=== PATIENT | female | born 1960 | race Asian ===

== ENCOUNTER 2023-07-22 01:25 | Inpatient (IN) | payer MEDICARE, OTHER ==
[~2023-07-22] VITALS: Ht 152.4 cm; Wt 60.8 kg
[~2023-07-22 01:25] MED LIST: AMLO-258 PO; CLON0.3T PO; DIVA500T53 PO; OLAN10TA26 PO
[2023-07-22 01:55] VITALS: PULSE 109; RESP 27; O2SAT 100
[2023-07-22 02:00] VITALS: PULSE 109; RESP 27; O2SAT 100
[2023-07-22] MEDS ORDERED: MethylPREDNISolone SOD SUCC 125 MG/2 ML VIAL IVP ONE (02:00)
[2023-07-22] MEDS ORDERED: FUROSEMIDE 40 MG/4 ML VIAL IVP ONE (02:00)
[2023-07-22] MEDS ORDERED: ALBUTEROL SULFATE 2.5 MG/0.5 ML NEB SOLUTION NEB ONE (02:00)
[2023-07-22] MEDS ORDERED: IPRATROPIUM BROMIDE 0.5 MG/2.5 ML NEB SOLUTION NEB ONE (02:00)
[2023-07-22 02:10] LABS: BASOPHILS % (AUTO) 0.8 % (0.0-2.0); EOSINOPHILS % (AUTO) 2.8 % (1.0-6.0); HEMATOCRIT 23.8 % (36-46); HEMOGLOBIN 7.7 g/dL (12.0-16.0); LYMPHOCYTES # (AUTO) 1.3 K/uL (1.0-4.8); LYMPHOCYTES % (AUTO) 12.6 % (22.0-44.0); MEAN CORPUSCULAR HEMOGLOBIN 29.3 pg (26.0-34.0); MEAN CORPUSCULAR HGB CONC 32.2 G/dL (31.0-37.0); MEAN CORPUSCULAR VOLUME 91 fL (80-100); MONOCYTES # (AUTO) 0.6 K/uL (0.1-1.0); MONOCYTES % (AUTO) 6.2 % (2.0-9.0); NEUTROPHILS % (AUTO) 77.6 % (40.0-70.0); PLATELET COUNT (AUTO) 332 K/uL (150-450); RED BLOOD CELL COUNT(AUTO) 2.62 MIL/uL (4.00-5.20); RED CELL DISTRIBUTION WIDTH 15.2 % (11.5-14.5); WHITE BLOOD COUNT (AUTO) 10.3 K/uL (4.5-11.0)
[2023-07-22] MEDS ORDERED: NITROGLYCERIN 2% (1 GM=INCH) OINTMENT PACKET TP ONE (02:15)
[2023-07-22 02:19] LABS: CALCIUM, TOTAL 7.5 mg/dL (8.8-10.5); CREATININE 6.26 mg/dL (0.60-1.30); POTASSIUM 4.3 mmol/L (3.5-5.1)
[2023-07-22 02:23] LABS: D-DIMER 1.51 mg/L FEU (0.00-0.50); INR 1.1 (0.9-1.1); PROTHROMBIN TIME 11.5 SEC (9.4-11.6)
[2023-07-22 02:29] LABS: ALBUMIN 1.6 g/dL (3.4-5.0); BILIRUBIN,TOTAL 0.1 mg/dL (0.1-1.0); TOTAL PROTEIN, SERUM 7.2 g/dL (6.4-8.2)
[2023-07-22 02:34] LABS: TROPONIN I-HIGH SENSITIVITY 69 ng/L (<51)
[2023-07-22] MEDS ORDERED: HydrALAZINE HCL 20 MG/ML VIAL IVP ONE (02:45)
[2023-07-22 02:56] LABS: COVID AG,FIA SOURCE NASAL SWAB
[2023-07-22] MEDS ORDERED: DEXTROSE 50%-WATER 25 GM/50 ML SYRINGE IVP PRN (03:00)
[2023-07-22] MEDS ORDERED: NiCARDipine HCL 25 MG in SODIUM CHLORIDE 0.9% 240 ML IV PRN (03:00)
[2023-07-22] MEDS ORDERED: ATORVASTATIN CALCIUM 40 MG TABLET PO ONE (03:00)
[2023-07-22] MEDS ORDERED: LABETALOL HCL 5 MG/ML 20 ML VIAL IVP ONE (03:15)
[2023-07-22 03:16] LABS: SARS-COV2 (COVID) ANTIGEN,FIA Negative (Negative)
[2023-07-22 03:17] LABS: INFLUENZA TYPE A NEGATIVE FOR TYPE A (NEGATIVE); INFLUENZA TYPE B NEGATIVE FOR TYPE B (NEGATIVE)
[2023-07-22 04:29] LABS: % IRON SATURATION 9.6 % (22-44)
[2023-07-22 04:55] LABS: APPEARANCE,URINE CLEAR (CLEAR); BILIRUBIN,URINE NEGATIVE (NEGATIVE); COLOR,URINE COLORLESS (YELLOW); CREATININE,URINE RANDOM 34.9 mg/dL (30.0-125.0); GLUCOSE, URINE (UA) 300-500 mg/dL (NEGATIVE); KETONES,URINE NEGATIVE (NEGATIVE); LEUKOCYTE ESTERASE ,URINE TRACE (NEGATIVE); NITRATE,URINE NEGATIVE (NEGATIVE); OCCULT BLOOD,URINE SMALL (NEGATIVE); PROTEIN,URINE 300-600,SEE CONFIRM mg/dL (NEGATIVE); SPECIFIC GRAVITIY, URINE 1.012 (1.003-1.030); UROBILINOGEN,URINE <=1.0 mg/dL (<=1.0)
[2023-07-22 05:05] LABS: BACTERIA,URINE None Seen /HPF (None Seen); SQUAMOUS EPITHELIAL CELL,UR None Seen /LPF (None Seen)
[2023-07-22 05:06] LABS: SULFOSALICYLIC ACID,URINE 3+ (Negative)
[2023-07-22 06:35] VITALS: PULSE 81; RESP 15; O2SAT 98
[2023-07-22 07:11] LABS: TROPONIN I-HIGH SENSITIVITY 99 ng/L (<51)
[2023-07-22 09:44] LABS: TROPONIN I-HIGH SENSITIVITY 105 ng/L (<51)
[2023-07-22 11:04] LABS: ABG BASE EXCESS -10.6 mmol/L (-2.0-3.0); ABG CARBOXYHEMOGLOBIN 0.5 % (0.0-1.5); ABG HCO3 16.7 mmol/L (22.0-26.0); ABG METHEMOGLOBIN 0.3 % (0.0-1.5); ABG OXYGEN CONTENT 12.1 mL/dL (15.0-23.0); ABG OXYGEN SATURATION 97.8 % (95.0-98.0); ABG PCO2 28 mmHg (35-45); ABG PH 7.354 (7.35-7.450); ABG TOTAL HEMOGLOBIN 8.7 G/dL (12.0-18.0); SOURCE, BLOOD GAS ARTERIAL; TEMPERATURE, FAHRENHEIT, BG 95.3 FAHREN (96.0-98.6)
[2023-07-22 11:05] LABS: ABG A-A DIFF O2 98.3 mmHg (10-20.0); ALLEN TEST, BLOOD GAS Positive; O2 DEVICE,BLOOD GAS CANNULA (ROOM AIR); SITE, BLOOD GAS RT RADIAL
[2023-07-22] MEDS ORDERED: PENTETATE DTPA TC99M/MCL ISOTOPE 1 EA INJ INJ ONE (11:50)
[2023-07-22] MEDS ORDERED: MAA ALBUMIN AGGREGATED TC99M/UD<10MCL ISOTOPE 1 EA INJ INJ ONE (12:20)
[2023-07-22 13:00] VITALS: BP 168/91; PULSE 92; RESP 20; TEMP 94.8
[2023-07-22] MEDS ORDERED: DOCU-412 PO (14:52)
[2023-07-22] MEDS ORDERED: FURO20TA4 PO (14:52)
[2023-07-22] MEDS ORDERED: METF-1211 PO (14:52)
[2023-07-22] MEDS ORDERED: AMLO10TA55 PO (14:52)
[2023-07-22] MEDS ORDERED: DIVA-111 PO (14:52)
[2023-07-22] MEDS: HydrALAZINE HCL 20 MG/ML VIAL IVP PRN (14:56)
[2023-07-22 16:00] VITALS: BP 126/66; PULSE 97; RESP 29; TEMP 95.4
[2023-07-22] MEDS: HEPARIN SODIUM,PORCINE 5,000 UNITS/ML VIAL SQ SCH (16:22)
[2023-07-22] MEDS: BUMETANIDE 0.25 MG/ML 4 ML VIAL IVP SCH ×2 (16:22→20:28)
[2023-07-22 16:51] LABS: GLUCOMETER DEV NAME(LOC) ICUN.5; GLUCOSE,POINT OF CARE 134 MG/DL (70-110)
[2023-07-22 17:30] LABS: ALCOHOL, URINE DRUG SCREEN NEGATIVE (NEGATIVE); AMPHET/METH SCREEN,URINE NEGATIVE (NEGATIVE); BARBITURATE SCREEN, URINE NEGATIVE (NEGATIVE); BENZODIAZEPINES SCREEN,URINE NEGATIVE (NEGATIVE); CANNABINOID SCREEN,URINE NEGATIVE (NEGATIVE); COCAINE SCREEN,URINE NEGATIVE (NEGATIVE); METHADONE SCREEN, URINE NEGATIVE (NEGATIVE); OPIATE SCREEN,URINE NEGATIVE (NEGATIVE); PHENCYCLIDINE SCREEN,URINE NEGATIVE (NEGATIVE)
[2023-07-22] MEDS: INSULIN LISPRO 100 UNITS/ML SQ PRN (18:15)
[2023-07-22] MEDS ORDERED: METOLAZONE 5 MG TABLET PO ONE (19:00)
[2023-07-22 19:16] LABS: GLUCOMETER DEV NAME(LOC) ICUN.5; GLUCOSE,POINT OF CARE 164 MG/DL (70-110)
[2023-07-22 20:00] VITALS: BP 160/83; PULSE 103; RESP 23; TEMP 96.1
[2023-07-22] MEDS: ATORVASTATIN CALCIUM 40 MG TABLET PO SCH (20:29)
[2023-07-22] MEDS: DOCUSATE SODIUM 100 MG CAPSULE PO SCH (20:29)
[2023-07-22] MEDS ORDERED: PNEUMOCOCCAL VACCINE POLYVALENT 0.5 ML SYRINGE [PPSV23] IM. ONE (20:45)
[2023-07-22] MEDS ORDERED: INFLUENZA VIRUS VACCINE QVS 2023-24 (6MO+)/PF 60 MCG/0.5 ML SYRINGE IM. ONE (20:45)
[2023-07-22] MEDS: METOPROLOL TARTRATE 25 MG TABLET PO SCH (21:19)
[2023-07-22] MEDS: CHLORHEXIDINE GLUCONATE 2% TOWELETTE [2'S/6'S] TP SCH (22:09)
[2023-07-23] VITALS (18 sets, daily range): BP systolic 124–164; BP diastolic 53–108; PULSE 73–95; RESP 11–23; TEMP 97.6–98.6
[2023-07-23] MEDS: HEPARIN SODIUM,PORCINE 5,000 UNITS/ML VIAL SQ SCH ×4 (00:06→23:52)
[2023-07-23 05:34] LABS: BASOPHILS % (AUTO) 0.2 % (0.0-2.0); EOSINOPHILS % (AUTO) 0 % (1.0-6.0); LYMPHOCYTES # (AUTO) 1.2 K/uL (1.0-4.8); MONOCYTES # (AUTO) 0.8 K/uL (0.1-1.0)
[2023-07-23 05:41] LABS: CALCIUM, TOTAL 6.9 mg/dL (8.8-10.5); CREATININE 6.46 mg/dL (0.60-1.30); MAGNESIUM 2.3 mg/dL (1.80-2.40); POTASSIUM 4.7 mmol/L (3.5-5.1)
[2023-07-23 05:43] LABS: LYMPHOCYTES % (AUTO) 10.1 % (22.0-44.0); MEAN CORPUSCULAR HEMOGLOBIN 29.5 pg (26.0-34.0); MEAN CORPUSCULAR HGB CONC 32.6 G/dL (31.0-37.0); MEAN CORPUSCULAR VOLUME 91 fL (80-100); MONOCYTES % (AUTO) 7.1 % (2.0-9.0); NEUTROPHILS # (AUTO) 9.5 K/uL (1.8-7.7); NEUTROPHILS % (AUTO) 82.6 % (40.0-70.0); PLATELET COUNT (AUTO) 312 K/uL (150-450); RED BLOOD CELL COUNT(AUTO) 2.32 MIL/uL (4.00-5.20); RED CELL DISTRIBUTION WIDTH 15.3 % (11.5-14.5); WHITE BLOOD COUNT (AUTO) 11.5 K/uL (4.5-11.0)
[2023-07-23 05:57] LABS: HEMOGLOBIN 6.8 g/dL (12.0-16.0); TROPONIN I-HIGH SENSITIVITY 72 ng/L (<51)
[2023-07-23 07:11] LABS: GLUCOMETER DEV NAME(LOC) ICUN.5; GLUCOSE,POINT OF CARE 114 MG/DL (70-110)
[2023-07-23] MEDS: METOPROLOL TARTRATE 25 MG TABLET PO SCH ×2 (08:58→20:18)
[2023-07-23] MEDS: BUMETANIDE 0.25 MG/ML 4 ML VIAL IVP SCH ×3 (08:58→20:18)
[2023-07-23] MEDS: DOCUSATE SODIUM 100 MG CAPSULE PO SCH ×3 (08:58→21:00)
[2023-07-23] MEDS: AmLODIPine BESYLATE 5 MG TABLET PO SCH ×2 (08:59→20:18)
[2023-07-23] MEDS ORDERED: AmLODIPine BESYLATE 5 MG TABLET PO SCH (09:00)
[2023-07-23] MEDS ORDERED: HEPARIN SODIUM,PORCINE 1,000 UNITS/ML VIAL IVCATH ONE ×2 (10:45)
[2023-07-23] MEDS ORDERED: SODIUM CHLORIDE 0.9% 250 ML IV ONE (10:57)
[2023-07-23] MEDS ORDERED: HEPARIN SODIUM,PORCINE 1,000 UNITS/ML VIAL IVCATH PRN (11:00)
[2023-07-23 15:56] LABS: GLUCOSE,POINT OF CARE 110 MG/DL (70-110)
[2023-07-23] MEDS: ATORVASTATIN CALCIUM 40 MG TABLET PO SCH (20:18)
[2023-07-23] MEDS: INSULIN LISPRO 100 UNITS/ML SQ PRN (20:21)
[2023-07-23 20:25] LABS: GLUCOMETER DEV NAME(LOC) ICUN.5; GLUCOSE,POINT OF CARE 152 MG/DL (70-110)
[2023-07-23 21:16] LABS: GLUCOSE,POINT OF CARE 105 MG/DL (70-110)
[2023-07-23] MEDS: CHLORHEXIDINE GLUCONATE 2% TOWELETTE [2'S/6'S] TP SCH (21:19)
[2023-07-23] MEDS: HydrALAZINE HCL 20 MG/ML VIAL IVP PRN (23:47)
[2023-07-24] VITALS (13 sets, daily range): BP systolic 119–162; BP diastolic 58–83; PULSE 73–80; RESP 15–18; TEMP 98.6–99
[2023-07-24 06:22] LABS: GLUCOMETER DEV NAME(LOC) ICUN.5; GLUCOSE,POINT OF CARE 96 MG/DL (70-110)
[2023-07-24 06:29] LABS: BASOPHILS % (AUTO) 0.2 % (0.0-2.0); EOSINOPHILS % (AUTO) 2.3 % (1.0-6.0); HEMATOCRIT 27.3 % (36-46); HEMOGLOBIN 9.1 g/dL (12.0-16.0); LYMPHOCYTES # (AUTO) 1.8 K/uL (1.0-4.8); MEAN CORPUSCULAR HEMOGLOBIN 29.9 pg (26.0-34.0); MEAN CORPUSCULAR HGB CONC 33.3 G/dL (31.0-37.0); MEAN CORPUSCULAR VOLUME 90 fL (80-100); MONOCYTES # (AUTO) 0.9 K/uL (0.1-1.0); MONOCYTES % (AUTO) 8.4 % (2.0-9.0); NEUTROPHILS # (AUTO) 8.1 K/uL (1.8-7.7); NEUTROPHILS % (AUTO) 73.1 % (40.0-70.0); PLATELET COUNT (AUTO) 254 K/uL (150-450); RED BLOOD CELL COUNT(AUTO) 3.03 MIL/uL (4.00-5.20); RED CELL DISTRIBUTION WIDTH 14.7 % (11.5-14.5)
[2023-07-24 06:41] LABS: CALCIUM, TOTAL 7.3 mg/dL (8.8-10.5); CHOL/HDL RATIO 2.5 (3.9-5.7); CREATININE 4.7 mg/dL (0.60-1.30); MAGNESIUM 1.9 mg/dL (1.80-2.40)
[2023-07-24] MEDS ORDERED: SODIUM CHLORIDE 0.9% 2,000 ML ONE (06:56)
[2023-07-24 07:01] LABS: % IRON SATURATION 13.9 % (22-44)
[2023-07-24] MEDS ORDERED: LACTULOSE 20 GM/30 ML SOLUTION UDCUP PO ONE (08:30)
[2023-07-24] MEDS: HEPARIN SODIUM,PORCINE 5,000 UNITS/ML VIAL SQ SCH ×3 (08:37→23:18)
[2023-07-24] MEDS: DOCUSATE SODIUM 100 MG CAPSULE PO SCH ×2 (08:38→20:50)
[2023-07-24] MEDS: BUMETANIDE 0.25 MG/ML 4 ML VIAL IVP SCH ×3 (08:38→20:49)
[2023-07-24] MEDS: METOPROLOL TARTRATE 25 MG TABLET PO SCH ×2 (08:38→20:50)
[2023-07-24] MEDS: AmLODIPine BESYLATE 5 MG TABLET PO SCH ×2 (08:38→20:50)
[2023-07-24 09:07] LABS: COMPLEMENT C3 126 mg/dL (82-167); COMPLEMENT C4 39 mg/dL (12-38)
[2023-07-24] MEDS: MethylPREDNISolone SOD SUCC 40 MG/ML VIAL IVP SCH ×4 (09:42→23:17)
[2023-07-24] MEDS: EPOETIN ALFA 10,000 UNITS/ML VIAL SQ SCH (09:42)
[2023-07-24 11:16] LABS: HEMOGLOBIN A1C 5.6 % (3.8-5.6)
[2023-07-24 12:16] LABS: GLUCOMETER DEV NAME(LOC) ICUN.5; GLUCOSE,POINT OF CARE 111 MG/DL (70-110)
[2023-07-24] MEDS: SOD FERRIC GLUC COMPLX/SUCROSE 125 MG in SODIUM CHLORIDE 0.9% 100 ML IV SCH (15:34)
[2023-07-24] MEDS ORDERED: SODIUM CHLORIDE 0.9% 250 ML IV ONE (15:41)
[2023-07-24] MEDS ORDERED: HEPARIN SODIUM,PORCINE 1,000 UNITS/ML VIAL IVP ONE ×2 (17:20→17:23)
[2023-07-24] MEDS: INSULIN LISPRO 100 UNITS/ML SQ PRN ×2 (17:29→22:15)
[2023-07-24] MEDS: HydrALAZINE HCL 20 MG/ML VIAL IVP PRN (17:40)
[2023-07-24 19:31] LABS: GLUCOMETER DEV NAME(LOC) ICUN.5; GLUCOSE,POINT OF CARE 215 MG/DL (70-110)
[2023-07-24] MEDS: ATORVASTATIN CALCIUM 40 MG TABLET PO SCH (20:50)
[2023-07-24 22:31] LABS: GLUCOMETER DEV NAME(LOC) ICUN.5; GLUCOSE,POINT OF CARE 236 MG/DL (70-110)
[2023-07-24] MEDS: CHLORHEXIDINE GLUCONATE 2% TOWELETTE [2'S/6'S] TP SCH (23:18)
[2023-07-25] VITALS: BP 153/76; PULSE 75; RESP 14; TEMP 99.5
[2023-07-25 04:00] VITALS: BP 150/73; PULSE 71; PULSE 73; RESP 15; TEMP 99.4
[2023-07-25] MEDS: MethylPREDNISolone SOD SUCC 40 MG/ML VIAL IVP SCH ×4 (05:01→23:53)
[2023-07-25] MEDS: INSULIN LISPRO 100 UNITS/ML SQ PRN ×3 (05:53→22:27)
[2023-07-25 05:56] LABS: GLUCOMETER DEV NAME(LOC) ICUN.5; GLUCOSE,POINT OF CARE 170 MG/DL (70-110)
[2023-07-25 06:10] LABS: BASOPHILS % (AUTO) 0.1 % (0.0-2.0); EOSINOPHILS % (AUTO) 0 % (1.0-6.0); HEMATOCRIT 28.2 % (36-46); HEMOGLOBIN 9.3 g/dL (12.0-16.0); LYMPHOCYTES # (AUTO) 0.6 K/uL (1.0-4.8); LYMPHOCYTES % (AUTO) 6.3 % (22.0-44.0); MEAN CORPUSCULAR HEMOGLOBIN 29.6 pg (26.0-34.0); MEAN CORPUSCULAR VOLUME 90 fL (80-100); MONOCYTES # (AUTO) 0.2 K/uL (0.1-1.0); MONOCYTES % (AUTO) 1.9 % (2.0-9.0); NEUTROPHILS # (AUTO) 8.6 K/uL (1.8-7.7); PLATELET COUNT (AUTO) 228 K/uL (150-450); RED BLOOD CELL COUNT(AUTO) 3.14 MIL/uL (4.00-5.20); RED CELL DISTRIBUTION WIDTH 14.9 % (11.5-14.5); WHITE BLOOD COUNT (AUTO) 9.4 K/uL (4.5-11.0)
[2023-07-25 06:25] LABS: CALCIUM, TOTAL 6.9 mg/dL (8.8-10.5); CREATININE 4.12 mg/dL (0.60-1.30); MAGNESIUM 1.9 mg/dL (1.80-2.40); PHOSPHORUS 5.1 mg/dL (2.5-4.9); POTASSIUM 3.6 mmol/L (3.5-5.1)
[2023-07-25 07:08] LABS: NEUTROPHILS % (AUTO) 91.7 % (40.0-70.0)
[2023-07-25] MEDS: HEPARIN SODIUM,PORCINE 5,000 UNITS/ML VIAL SQ SCH ×3 (07:32→23:53)
[2023-07-25] MEDS: BUMETANIDE 0.25 MG/ML 4 ML VIAL IVP SCH ×3 (07:36→21:27)
[2023-07-25] MEDS: METOPROLOL TARTRATE 25 MG TABLET PO SCH ×2 (07:37→21:28)
[2023-07-25] MEDS: DOCUSATE SODIUM 100 MG CAPSULE PO SCH ×2 (07:37→21:27)
[2023-07-25] MEDS: AmLODIPine BESYLATE 5 MG TABLET PO SCH ×2 (07:37→21:27)
[2023-07-25 08:00] VITALS: BP 145/71; PULSE 70; RESP 12; TEMP 99
[2023-07-25 11:46] LABS: GLUCOSE,POINT OF CARE 226 MG/DL (70-110)
[2023-07-25 12:00] VITALS: BP 160/67; PULSE 71; RESP 14; TEMP 98.7
[2023-07-25 16:00] VITALS: BP 154/78; PULSE 75; RESP 14; TEMP 98.5
[2023-07-25] MEDS: SOD FERRIC GLUC COMPLX/SUCROSE 125 MG in SODIUM CHLORIDE 0.9% 100 ML IV SCH (16:50)
[2023-07-25 17:57] LABS: SPECIMENTYPE,BODY FLUID PLEURAL
[2023-07-25 18:33] LABS: APPEARANCE,SPUN,BODY FLUID CLEAR (CLEAR); APPEARANCE,UNSPUN,BODY FLUID HAZY (CLEAR); COLOR,BODY FLUID LT YELLOW (LT YELLOW); TOTAL VOLUME,BODY FLUID 550 mL
[2023-07-25 18:34] LABS: BASOPHILS,BODY FLUID 0 %; EOSINOPHILS,BF (ANAL) 0 %; LYMPHOCYTES,BODY FLUID 40 %; MONOCYTES,BODY FLUID 4 %; NEUTROPHILS,BODY FLUID 4 %; OTHER CELLS,BODY FLUID MESOTHELIALS; WBC, BODY FLUID 38 /cu. mm.
[2023-07-25 18:35] LABS: PH, BODY FLUID 7
[2023-07-25 19:51] LABS: GLUCOMETER DEV NAME(LOC) ICUN.5; GLUCOSE,POINT OF CARE 259 MG/DL (70-110)
[2023-07-25 20:00] VITALS: BP 169/92; PULSE 72; RESP 16; TEMP 98.7
[2023-07-25] MEDS: ATORVASTATIN CALCIUM 40 MG TABLET PO SCH (21:27)
[2023-07-25] MEDS: CHLORHEXIDINE GLUCONATE 2% TOWELETTE [2'S/6'S] TP SCH (22:27)
[2023-07-25 22:35] LABS: GLUCOMETER DEV NAME(LOC) ICUN.5; GLUCOSE,POINT OF CARE 235 MG/DL (70-110)
[2023-07-26] VITALS (16 sets, daily range): BP systolic 142–170; BP diastolic 72–86; PULSE 61–73; RESP 13–17; TEMP 98.4–99.5
[2023-07-26] MEDS ORDERED: SODIUM CHLORIDE 0.9% 2,000 ML ONE (04:02)
[2023-07-26] MEDS: MethylPREDNISolone SOD SUCC 40 MG/ML VIAL IVP SCH ×3 (05:36→17:19)
[2023-07-26 06:00] LABS: EOSINOPHILS % (AUTO) 0 % (1.0-6.0); HEMATOCRIT 29.7 % (36-46); HEMOGLOBIN 9.7 g/dL (12.0-16.0); LYMPHOCYTES # (AUTO) 0.7 K/uL (1.0-4.8); LYMPHOCYTES % (AUTO) 3.2 % (22.0-44.0); MEAN CORPUSCULAR HEMOGLOBIN 29.4 pg (26.0-34.0); MEAN CORPUSCULAR HGB CONC 32.6 G/dL (31.0-37.0); MEAN CORPUSCULAR VOLUME 90 fL (80-100); MONOCYTES # (AUTO) 1.2 K/uL (0.1-1.0); MONOCYTES % (AUTO) 5.5 % (2.0-9.0); PLATELET COUNT (AUTO) 258 K/uL (150-450); RED BLOOD CELL COUNT(AUTO) 3.29 MIL/uL (4.00-5.20); RED CELL DISTRIBUTION WIDTH 14.3 % (11.5-14.5); WHITE BLOOD COUNT (AUTO) 21.9 K/uL (4.5-11.0)
[2023-07-26 06:14] LABS: CALCIUM, TOTAL 7.6 mg/dL (8.8-10.5); CREATININE 2.79 mg/dL (0.60-1.30); POTASSIUM 3.3 mmol/L (3.5-5.1)
[2023-07-26 06:36] LABS: GLUCOMETER DEV NAME(LOC) ICUN.5; GLUCOSE,POINT OF CARE 116 MG/DL (70-110)
[2023-07-26 06:44] LABS: NEUTROPHILS % (AUTO) 91.3 % (40.0-70.0)
[2023-07-26] MEDS ORDERED: HEPARIN SODIUM,PORCINE 1,000 UNITS/ML VIAL IVCATH ONE ×2 (08:00)
[2023-07-26] MEDS: EPOETIN ALFA 10,000 UNITS/ML VIAL SQ SCH (08:49)
[2023-07-26] MEDS: BUMETANIDE 0.25 MG/ML 4 ML VIAL IVP SCH ×3 (08:50→20:05)
[2023-07-26] MEDS: DOCUSATE SODIUM 100 MG CAPSULE PO SCH ×2 (08:50→20:05)
[2023-07-26] MEDS: AmLODIPine BESYLATE 5 MG TABLET PO SCH ×2 (08:50→20:05)
[2023-07-26] MEDS: METOPROLOL TARTRATE 25 MG TABLET PO SCH ×2 (08:50→20:05)
[2023-07-26] MEDS: HEPARIN SODIUM,PORCINE 5,000 UNITS/ML VIAL SQ SCH ×2 (08:50→15:47)
[2023-07-26] MEDS: INSULIN LISPRO 100 UNITS/ML SQ PRN ×3 (11:30→20:08)
[2023-07-26] MEDS: SOD FERRIC GLUC COMPLX/SUCROSE 125 MG in SODIUM CHLORIDE 0.9% 100 ML IV SCH (15:46)
[2023-07-26] MEDS: HydrALAZINE HCL 50 MG TABLET PO SCH (15:47)
[2023-07-26 16:36] LABS: GLUCOMETER DEV NAME(LOC) ICUN.5; GLUCOSE,POINT OF CARE 232 MG/DL (70-110)
[2023-07-26 19:36] LABS: GLUCOMETER DEV NAME(LOC) ICUN.5; GLUCOSE,POINT OF CARE 189 MG/DL (70-110)
[2023-07-26] MEDS: ATORVASTATIN CALCIUM 40 MG TABLET PO SCH (20:05)
[2023-07-26 20:15] LABS: GLUCOMETER DEV NAME(LOC) ICUN.5; GLUCOSE,POINT OF CARE 241 MG/DL (70-110)
[2023-07-26] MEDS: CHLORHEXIDINE GLUCONATE 2% TOWELETTE [2'S/6'S] TP SCH (20:40)
[2023-07-27] VITALS: BP 159/77; PULSE 66; RESP 15; TEMP 99.5
[2023-07-27] MEDS: HydrALAZINE HCL 50 MG TABLET PO SCH ×4 (00:31→23:09)
[2023-07-27] MEDS: HEPARIN SODIUM,PORCINE 5,000 UNITS/ML VIAL SQ SCH ×4 (00:31→23:10)
[2023-07-27] MEDS: MethylPREDNISolone SOD SUCC 40 MG/ML VIAL IVP SCH ×2 (00:32→06:00)
[2023-07-27 04:00] VITALS: BP 151/70; PULSE 65; RESP 16; TEMP 98.5
[2023-07-27 05:15] LABS: EOSINOPHILS % (AUTO) 0 % (1.0-6.0); HEMATOCRIT 30.2 % (36-46); HEMOGLOBIN 10.2 g/dL (12.0-16.0); LYMPHOCYTES # (AUTO) 0.8 K/uL (1.0-4.8); LYMPHOCYTES % (AUTO) 2.7 % (22.0-44.0); MEAN CORPUSCULAR HEMOGLOBIN 29.8 pg (26.0-34.0); MEAN CORPUSCULAR HGB CONC 33.6 G/dL (31.0-37.0); MEAN CORPUSCULAR VOLUME 89 fL (80-100); MONOCYTES # (AUTO) 1.3 K/uL (0.1-1.0); MONOCYTES % (AUTO) 4.3 % (2.0-9.0); NEUTROPHILS # (AUTO) 27.6 K/uL (1.8-7.7); PLATELET COUNT (AUTO) 267 K/uL (150-450); RED BLOOD CELL COUNT(AUTO) 3.41 MIL/uL (4.00-5.20); RED CELL DISTRIBUTION WIDTH 14.4 % (11.5-14.5); WHITE BLOOD COUNT (AUTO) 29.7 K/uL (4.5-11.0)
[2023-07-27 05:29] LABS: CALCIUM, TOTAL 7.7 mg/dL (8.8-10.5); CREATININE 3.45 mg/dL (0.60-1.30); PHOSPHORUS 4.7 mg/dL (2.5-4.9); POTASSIUM 3.8 mmol/L (3.5-5.1)
[2023-07-27] MEDS: INSULIN LISPRO 100 UNITS/ML SQ PRN ×3 (06:02→17:43)
[2023-07-27 07:10] LABS: GLUCOMETER DEV NAME(LOC) ICUN.5; GLUCOSE,POINT OF CARE 162 MG/DL (70-110)
[2023-07-27 08:00] VITALS: BP 156/87; PULSE 66; RESP 15; TEMP 98.5
[2023-07-27] MEDS: BUMETANIDE 0.25 MG/ML 4 ML VIAL IVP SCH ×3 (08:17→20:52)
[2023-07-27] MEDS: METOPROLOL TARTRATE 25 MG TABLET PO SCH ×2 (08:20→20:53)
[2023-07-27] MEDS: DOCUSATE SODIUM 100 MG CAPSULE PO SCH ×2 (08:20→20:53)
[2023-07-27] MEDS: AmLODIPine BESYLATE 5 MG TABLET PO SCH ×2 (08:20→20:53)
[2023-07-27 12:00] VITALS: BP 151/80; PULSE 66; RESP 15; TEMP 98.3
[2023-07-27] MEDS ORDERED: SODIUM CHLORIDE 0.9% 250 ML IV ONE (15:23)
[2023-07-27] MEDS: SOD FERRIC GLUC COMPLX/SUCROSE 125 MG in SODIUM CHLORIDE 0.9% 100 ML IV SCH (15:29)
[2023-07-27 16:00] VITALS: BP 149/84; PULSE 69; RESP 14; TEMP 99
[2023-07-27 17:01] LABS: GLUCOMETER DEV NAME(LOC) ICUN.5; GLUCOSE,POINT OF CARE 226 MG/DL (70-110)
[2023-07-27] MEDS: ACETAMINOPHEN 325 MG TABLET PO PRN (17:45)
[2023-07-27] MEDS: ONDANSETRON HCL 4 MG/2 ML VIAL IVP PRN (18:00)
[2023-07-27 20:00] VITALS: BP 104/60; PULSE 83; RESP 14; TEMP 99.8
[2023-07-27 20:11] LABS: GLUCOSE,POINT OF CARE 236 MG/DL (70-110)
[2023-07-27] MEDS: ATORVASTATIN CALCIUM 40 MG TABLET PO SCH (20:53)
[2023-07-27] MEDS: CHLORHEXIDINE GLUCONATE 2% TOWELETTE [2'S/6'S] TP SCH (22:08)
[2023-07-27] MEDS ORDERED: GABAPENTIN 300 MG CAPSULE PO ONE (23:00)
[2023-07-27 23:51] LABS: GLUCOSE,POINT OF CARE 124 MG/DL (70-110)
[2023-07-28] VITALS (10 sets, daily range): BP systolic 112–177; BP diastolic 60–92; PULSE 63–86; RESP 15–18; TEMP 98.1–98.5
[2023-07-28] MEDS: ONDANSETRON HCL 4 MG/2 ML VIAL IVP PRN ×2 (02:24→08:07)
[2023-07-28 05:59] LABS: HEMATOCRIT 30.6 % (36-46); HEMOGLOBIN 9.9 g/dL (12.0-16.0); MEAN CORPUSCULAR HEMOGLOBIN 29.5 pg (26.0-34.0); MEAN CORPUSCULAR HGB CONC 32.5 G/dL (31.0-37.0); MEAN CORPUSCULAR VOLUME 91 fL (80-100); PLATELET COUNT (AUTO) 246 K/uL (150-450); RED BLOOD CELL COUNT(AUTO) 3.37 MIL/uL (4.00-5.20); RED CELL DISTRIBUTION WIDTH 14.5 % (11.5-14.5)
[2023-07-28 06:08] LABS: CALCIUM, TOTAL 7.2 mg/dL (8.8-10.5); CREATININE 4.18 mg/dL (0.60-1.30); PHOSPHORUS 4.2 mg/dL (2.5-4.9); POTASSIUM 3.3 mmol/L (3.5-5.1)
[2023-07-28 06:31] LABS: WHITE BLOOD COUNT (AUTO) 36.4 K/uL (4.5-11.0)
[2023-07-28] MEDS: INSULIN LISPRO 100 UNITS/ML SQ PRN ×3 (06:38→21:16)
[2023-07-28 06:51] LABS: GLUCOSE,POINT OF CARE 178 MG/DL (70-110)
[2023-07-28 06:56] LABS: BAND NEUTROPHILS % (MANUAL) 1 % (0-5); LYMPHOCYTES % (MANUAL) 3 % (22-44); MONOCYTES % (MANUAL) 4 % (2-9); RBC MORPHOLOGY COMMENT ABNORMAL R; SEGMENTED NEUTROPHILS % 92 % (40-70); TOTAL CELLS COUNTED 100
[2023-07-28] MEDS: HEPARIN SODIUM,PORCINE 5,000 UNITS/ML VIAL SQ SCH ×2 (08:07→16:00)
[2023-07-28] MEDS: DOCUSATE SODIUM 100 MG CAPSULE PO SCH ×2 (08:07→20:55)
[2023-07-28] MEDS: BUMETANIDE 0.25 MG/ML 4 ML VIAL IVP SCH ×3 (08:07→20:55)
[2023-07-28] MEDS: HydrALAZINE HCL 50 MG TABLET PO SCH ×2 (08:08→16:36)
[2023-07-28] MEDS: METOPROLOL TARTRATE 25 MG TABLET PO SCH ×2 (08:08→20:55)
[2023-07-28] MEDS: ACETAMINOPHEN 325 MG TABLET PO PRN ×2 (08:08→17:51)
[2023-07-28] MEDS: AmLODIPine BESYLATE 5 MG TABLET PO SCH ×2 (08:08→20:55)
[2023-07-28] MEDS: HydrALAZINE HCL 20 MG/ML VIAL IVP PRN (08:20)
[2023-07-28] MEDS: POTASSIUM CHL 10 MEQ/WATER 50 ML IV SCH ×4 (11:05→16:34)
[2023-07-28 12:41] LABS: GLUCOMETER DEV NAME(LOC) ICUN.5; GLUCOSE,POINT OF CARE 148 MG/DL (70-110)
[2023-07-28 13:07] LABS: ATYPICAL P-ANCA AB <1:20 titer (Neg:<1:20); CYTOPLASMIC (C-ANCA) AB, IGG <1:20 titer (Neg:<1:20)
[2023-07-28] MEDS ORDERED: FentaNYL CITRATE PF 100 MCG/2 ML VIAL ONE (15:25)
[2023-07-28] MEDS ORDERED: MIDAZOLAM HCL 2 MG/2 ML VIAL ONE (15:25)
[2023-07-28] MEDS ORDERED: GELATIN SPONGE,ABSORBABLE 12-7 MM TP ONE (15:46)
[2023-07-28] MEDS ORDERED: LIDOCAINE/PF 1% 30 ML VIAL ONE (15:50)
[2023-07-28] MEDS ORDERED: MIDAZOLAM HCL 2 MG/2 ML VIAL IVP ONE (16:00)
[2023-07-28] MEDS ORDERED: LIDOCAINE 1% 30 ML/SOD BICARB 8.4% 4 ML SQ ONE (16:00)
[2023-07-28] MEDS ORDERED: FentaNYL CITRATE PF 100 MCG/2 ML VIAL IVP ONE (16:00)
[2023-07-28 19:46] LABS: GLUCOMETER DEV NAME(LOC) 5S.2C; GLUCOSE,POINT OF CARE 116 MG/DL (70-110)
[2023-07-28] MEDS: ATORVASTATIN CALCIUM 40 MG TABLET PO SCH (20:55)
[2023-07-28] MEDS: CHLORHEXIDINE GLUCONATE 2% TOWELETTE [2'S/6'S] TP SCH (20:56)
[2023-07-28 22:11] LABS: GLUCOMETER DEV NAME(LOC) 5S.1B; GLUCOSE,POINT OF CARE 235 MG/DL (70-110)
[2023-07-29] VITALS (14 sets, daily range): BP systolic 101–156; BP diastolic 54–100; PULSE 65–95; RESP 16–21; TEMP 97.5–98.5
[2023-07-29] MEDS: ONDANSETRON HCL 4 MG/2 ML VIAL IVP PRN ×2 (00:52→16:10)
[2023-07-29] MEDS: ACETAMINOPHEN 325 MG TABLET PO PRN ×2 (00:54→08:36)
[2023-07-29] MEDS: HydrALAZINE HCL 50 MG TABLET PO SCH ×3 (00:57→16:51)
[2023-07-29] MEDS: HEPARIN SODIUM,PORCINE 5,000 UNITS/ML VIAL SQ SCH ×3 (00:57→16:51)
[2023-07-29] MEDS: INSULIN LISPRO 100 UNITS/ML SQ PRN ×4 (06:14→20:26)
[2023-07-29 06:32] LABS: BASOPHILS % (AUTO) 0.3 % (0.0-2.0); EOSINOPHILS % (AUTO) 0 % (1.0-6.0); HEMATOCRIT 29.5 % (36-46); HEMOGLOBIN 9.7 g/dL (12.0-16.0); LYMPHOCYTES # (AUTO) 0.5 K/uL (1.0-4.8); LYMPHOCYTES % (AUTO) 1.3 % (22.0-44.0); MEAN CORPUSCULAR HEMOGLOBIN 29.9 pg (26.0-34.0); MEAN CORPUSCULAR HGB CONC 32.8 G/dL (31.0-37.0); MEAN CORPUSCULAR VOLUME 91 fL (80-100); MONOCYTES # (AUTO) 1.6 K/uL (0.1-1.0); MONOCYTES % (AUTO) 4.5 % (2.0-9.0); NEUTROPHILS # (AUTO) 32.8 K/uL (1.8-7.7); PLATELET COUNT (AUTO) 232 K/uL (150-450); RED BLOOD CELL COUNT(AUTO) 3.25 MIL/uL (4.00-5.20); RED CELL DISTRIBUTION WIDTH 14.2 % (11.5-14.5)
[2023-07-29 06:36] LABS: GLUCOMETER DEV NAME(LOC) 5S.1B; GLUCOSE,POINT OF CARE 176 MG/DL (70-110)
[2023-07-29 06:44] LABS: NEUTROPHILS % (AUTO) 93.9 % (40.0-70.0); WHITE BLOOD COUNT (AUTO) 34.9 K/uL (4.5-11.0)
[2023-07-29 07:08] LABS: CALCIUM, TOTAL 7.4 mg/dL (8.8-10.5); CREATININE 5.22 mg/dL (0.60-1.30); PHOSPHORUS 6.1 mg/dL (2.5-4.9); POTASSIUM 4.1 mmol/L (3.5-5.1)
[2023-07-29] MEDS: AmLODIPine BESYLATE 5 MG TABLET PO SCH ×2 (08:38→20:20)
[2023-07-29] MEDS: DOCUSATE SODIUM 100 MG CAPSULE PO SCH ×2 (08:38→20:20)
[2023-07-29] MEDS: BUMETANIDE 0.25 MG/ML 4 ML VIAL IVP SCH ×3 (08:38→20:20)
[2023-07-29] MEDS: METOPROLOL TARTRATE 25 MG TABLET PO SCH ×2 (08:38→20:20)
[2023-07-29] MEDS: EPOETIN ALFA 10,000 UNITS/ML VIAL SQ SCH (08:41)
[2023-07-29] MEDS ORDERED: MAGNESIUM SULFATE 1 GM in DEXTROSE 5%-WATER 50 ML IV ONE (11:30)
[2023-07-29] MEDS: SEVELAMER CARBONATE 800 MG TABLET PO SCH ×2 (12:00→17:14)
[2023-07-29] MEDS ORDERED: VANCOMYCIN 1GM/WATER(PEG/NADA) 200 ML IV PRN (12:15)
[2023-07-29 13:06] LABS: TOTAL PROTEIN,BODY FLUID,REF 1.2 g/dL
[2023-07-29] MEDS ORDERED: SODIUM CHLORIDE 0.9% 2,000 ML ONE (13:49)
[2023-07-29] MEDS ORDERED: VANCOMYCIN HCL 750 MG in DEXTROSE 5%-WATER 250 ML IV ONE (14:00)
[2023-07-29] MEDS: PIPERACILLIN SODIUM/TAZOBACTAM 2.25 GM in DEXTROSE 5%-WATER 50 ML IV SCH ×2 (16:51→20:20)
[2023-07-29] MEDS: HYDROCODONE/ACETAMINOPHEN 5-325 MG TABLET PO PRN (16:52)
[2023-07-29] MEDS: ATORVASTATIN CALCIUM 40 MG TABLET PO SCH (20:20)
[2023-07-29] MEDS: CHLORHEXIDINE GLUCONATE 2% TOWELETTE [2'S/6'S] TP SCH (22:17)
[2023-07-29 22:57] LABS: GLUCOMETER DEV NAME(LOC) 5S.1B; GLUCOSE,POINT OF CARE 238 MG/DL (70-110)
[2023-07-29 22:57] LABS: GLUCOMETER DEV NAME(LOC) 5S.2C; GLUCOSE,POINT OF CARE 240 MG/DL (70-110)
[2023-07-29 22:57] LABS: GLUCOMETER DEV NAME(LOC) 5S.1B; GLUCOSE,POINT OF CARE 284 MG/DL (70-110)
[2023-07-30 00:03] VITALS: BP 166/84; PULSE 81; RESP 18; TEMP 98.7
[2023-07-30] MEDS: HEPARIN SODIUM,PORCINE 5,000 UNITS/ML VIAL SQ SCH ×4 (00:22→23:47)
[2023-07-30] MEDS: HydrALAZINE HCL 50 MG TABLET PO SCH ×4 (00:22→23:46)
[2023-07-30] MEDS: PIPERACILLIN SODIUM/TAZOBACTAM 2.25 GM in DEXTROSE 5%-WATER 50 ML IV SCH ×3 (05:14→20:49)
[2023-07-30 05:22] VITALS: BP 133/72; PULSE 70; RESP 18; TEMP 98
[2023-07-30] MEDS: INSULIN LISPRO 100 UNITS/ML SQ PRN ×4 (05:34→20:55)
[2023-07-30 06:50] LABS: HEMATOCRIT 30.5 % (36-46); HEMOGLOBIN 9.9 g/dL (12.0-16.0); MEAN CORPUSCULAR HEMOGLOBIN 29.5 pg (26.0-34.0); MEAN CORPUSCULAR HGB CONC 32.4 G/dL (31.0-37.0); MEAN CORPUSCULAR VOLUME 91 fL (80-100); PLATELET COUNT (AUTO) 209 K/uL (150-450); RED BLOOD CELL COUNT(AUTO) 3.36 MIL/uL (4.00-5.20); RED CELL DISTRIBUTION WIDTH 14.2 % (11.5-14.5)
[2023-07-30 07:11] LABS: WHITE BLOOD COUNT (AUTO) 34.7 K/uL (4.5-11.0)
[2023-07-30 07:13] LABS: CALCIUM, TOTAL 7.4 mg/dL (8.8-10.5); CREATININE 4.34 mg/dL (0.60-1.30); PHOSPHORUS 5.8 mg/dL (2.5-4.9); POTASSIUM 3.9 mmol/L (3.5-5.1)
[2023-07-30 07:44] VITALS: BP 148/81; PULSE 74; RESP 16; TEMP 98.3
[2023-07-30 07:56] LABS: BAND NEUTROPHILS % (MANUAL) 5 % (0-5); LYMPHOCYTES % (MANUAL) 12 % (22-44); MONOCYTES % (MANUAL) 3 % (2-9); RBC MORPHOLOGY COMMENT NORMAL RBC MORPH; SEGMENTED NEUTROPHILS % 80 % (40-70); TOTAL CELLS COUNTED 100
[2023-07-30] MEDS ORDERED: VANCOMYCIN HCL 500 MG in DEXTROSE 5%-WATER 100 ML IV ONE (08:00)
[2023-07-30 08:39] LABS: APPEARANCE,URINE HAZY (CLEAR); BILIRUBIN,URINE NEGATIVE (NEGATIVE); COLOR,URINE LIGHT YELLOW (YELLOW); GLUCOSE, URINE (UA) 300-500 mg/dL (NEGATIVE); KETONES,URINE NEGATIVE (NEGATIVE); LEUKOCYTE ESTERASE ,URINE LARGE (NEGATIVE); NITRATE,URINE NEGATIVE (NEGATIVE); OCCULT BLOOD,URINE SMALL (NEGATIVE); PH,URINE 8.5 (5.0-8.0); PROTEIN,URINE >600,SEE CONFIRM mg/dL (NEGATIVE); SPECIFIC GRAVITIY, URINE 1.012 (1.003-1.030); UROBILINOGEN,URINE <=1.0 mg/dL (<=1.0)
[2023-07-30] MEDS: METOPROLOL TARTRATE 25 MG TABLET PO SCH ×2 (08:42→20:50)
[2023-07-30] MEDS: SEVELAMER CARBONATE 800 MG TABLET PO SCH ×3 (08:42→18:00)
[2023-07-30] MEDS: DOCUSATE SODIUM 100 MG CAPSULE PO SCH ×2 (08:42→20:50)
[2023-07-30] MEDS: HYDROCODONE/ACETAMINOPHEN 5-325 MG TABLET PO PRN ×3 (08:42→16:50)
[2023-07-30] MEDS: AmLODIPine BESYLATE 5 MG TABLET PO SCH ×2 (08:42→20:50)
[2023-07-30 08:43] LABS: SULFOSALICYLIC ACID,URINE 3+ (Negative)
[2023-07-30] MEDS: BUMETANIDE 0.25 MG/ML 4 ML VIAL IVP SCH ×3 (08:43→20:49)
[2023-07-30 08:44] LABS: BACTERIA,URINE Moderate /HPF (None Seen); SQUAMOUS EPITHELIAL CELL,UR Few /LPF (None Seen); TRIPLE PHOSPHATE CRYSTAL,UR Moderate /LPF (None Seen)
[2023-07-30 11:34] VITALS: BP 129/72; PULSE 86; RESP 16; TEMP 98.1
[2023-07-30] MEDS: ONDANSETRON HCL 4 MG/2 ML VIAL IVP PRN (12:34)
[2023-07-30 15:48] VITALS: BP 141/76; PULSE 74; RESP 16; TEMP 97.7
[2023-07-30] MEDS ORDERED: HEPARIN SODIUM,PORCINE 1,000 UNITS/ML VIAL IVP ONE (16:43)
[2023-07-30 19:39] VITALS: BP 118/60; PULSE 73; RESP 18; TEMP 98.3
[2023-07-30 20:26] LABS: GLUCOMETER DEV NAME(LOC) 5S.1B; GLUCOSE,POINT OF CARE 165 MG/DL (70-110)
[2023-07-30 20:26] LABS: GLUCOMETER DEV NAME(LOC) 5S.1B; GLUCOSE,POINT OF CARE 246 MG/DL (70-110)
[2023-07-30] MEDS: ATORVASTATIN CALCIUM 40 MG TABLET PO SCH (20:50)
[2023-07-30] MEDS: CHLORHEXIDINE GLUCONATE 2% TOWELETTE [2'S/6'S] TP SCH (23:08)
[2023-07-30 23:21] LABS: GLUCOMETER DEV NAME(LOC) 5N.2C; GLUCOSE,POINT OF CARE 195 MG/DL (70-110)
[2023-07-31 00:11] VITALS: BP 113/57; PULSE 66; RESP 18; TEMP 98.5
[2023-07-31 01:01] LABS: GLUCOMETER DEV NAME(LOC) 5S.2C; GLUCOSE,POINT OF CARE 200 MG/DL (70-110)
[2023-07-31] MEDS: PIPERACILLIN SODIUM/TAZOBACTAM 2.25 GM in DEXTROSE 5%-WATER 50 ML IV SCH ×3 (04:27→20:11)
[2023-07-31 06:11] VITALS: BP 130/58; PULSE 71; RESP 16; TEMP 98.2
[2023-07-31 07:17] LABS: BASOPHILS % (AUTO) 0.1 % (0.0-2.0); EOSINOPHILS % (AUTO) 0.6 % (1.0-6.0); HEMATOCRIT 28.6 % (36-46); HEMOGLOBIN 9.5 g/dL (12.0-16.0); MEAN CORPUSCULAR HEMOGLOBIN 30.1 pg (26.0-34.0); MEAN CORPUSCULAR HGB CONC 33.3 G/dL (31.0-37.0); MEAN CORPUSCULAR VOLUME 91 fL (80-100); MONOCYTES # (AUTO) 1.5 K/uL (0.1-1.0); MONOCYTES % (AUTO) 5.9 % (2.0-9.0); NEUTROPHILS # (AUTO) 22.3 K/uL (1.8-7.7); PLATELET COUNT (AUTO) 224 K/uL (150-450); RED BLOOD CELL COUNT(AUTO) 3.16 MIL/uL (4.00-5.20); RED CELL DISTRIBUTION WIDTH 14.5 % (11.5-14.5); WHITE BLOOD COUNT (AUTO) 24.9 K/uL (4.5-11.0)
[2023-07-31 07:19] LABS: NEUTROPHILS % (AUTO) 89.4 % (40.0-70.0)
[2023-07-31 07:33] LABS: CALCIUM, TOTAL 7.4 mg/dL (8.8-10.5); CREATININE 5.12 mg/dL (0.60-1.30); PHOSPHORUS 5.9 mg/dL (2.5-4.9); POTASSIUM 3.8 mmol/L (3.5-5.1); VANCOMYCIN,RANDOM 19.8 mcg/mL (25.0-50.0)
[2023-07-31] MEDS: SEVELAMER CARBONATE 800 MG TABLET PO SCH ×3 (08:25→17:58)
[2023-07-31] MEDS: BUMETANIDE 0.25 MG/ML 4 ML VIAL IVP SCH ×3 (08:25→20:11)
[2023-07-31] MEDS: HEPARIN SODIUM,PORCINE 5,000 UNITS/ML VIAL SQ SCH ×3 (08:25→23:40)
[2023-07-31] MEDS: HydrALAZINE HCL 50 MG TABLET PO SCH ×3 (08:25→23:40)
[2023-07-31] MEDS: DOCUSATE SODIUM 100 MG CAPSULE PO SCH ×2 (08:25→20:11)
[2023-07-31] MEDS: METOPROLOL TARTRATE 25 MG TABLET PO SCH ×2 (08:25→20:11)
[2023-07-31] MEDS: AmLODIPine BESYLATE 5 MG TABLET PO SCH ×2 (08:26→20:11)
[2023-07-31] MEDS: EPOETIN ALFA 10,000 UNITS/ML VIAL SQ SCH (08:26)
[2023-07-31 08:30] LABS: RBC MORPHOLOGY COMMENT NORMAL RBC MORPH
[2023-07-31 08:44] VITALS: BP 136/62; PULSE 72; RESP 18; TEMP 98
[2023-07-31] MEDS: ACETAMINOPHEN 325 MG TABLET PO PRN (08:48)
[2023-07-31] MEDS: HYDROCODONE/ACETAMINOPHEN 5-325 MG TABLET PO PRN ×2 (10:05→15:26)
[2023-07-31 11:06] LABS: GLUCOMETER DEV NAME(LOC) 5S.2C; GLUCOSE,POINT OF CARE 107 MG/DL (70-110)
[2023-07-31] MEDS: INSULIN LISPRO 100 UNITS/ML SQ PRN ×3 (12:32→20:34)
[2023-07-31 14:33] VITALS: BP 134/74; PULSE 68; RESP 18; TEMP 98.8
[2023-07-31 20:00] VITALS: BP 111/61; PULSE 66; RESP 18; TEMP 97.8
[2023-07-31] MEDS: ATORVASTATIN CALCIUM 40 MG TABLET PO SCH (20:11)
[2023-07-31 21:31] LABS: GLUCOMETER DEV NAME(LOC) 5S.1B; GLUCOSE,POINT OF CARE 193 MG/DL (70-110)
[2023-07-31 21:31] LABS: GLUCOMETER DEV NAME(LOC) 5S.1B; GLUCOSE,POINT OF CARE 197 MG/DL (70-110)
[2023-07-31] MEDS ORDERED: VANCOMYCIN HCL 750 MG in DEXTROSE 5%-WATER 250 ML IV ONE (22:00)
[2023-07-31] MEDS: CHLORHEXIDINE GLUCONATE 2% TOWELETTE [2'S/6'S] TP SCH (22:18)
[2023-08-01] VITALS: BP 130/75; PULSE 60; RESP 18; TEMP 97.8
[2023-08-01 04:00] VITALS: BP 126/55; PULSE 65; RESP 18; TEMP 98
[2023-08-01] MEDS: PIPERACILLIN SODIUM/TAZOBACTAM 2.25 GM in DEXTROSE 5%-WATER 50 ML IV SCH ×2 (05:13→12:36)
[2023-08-01 05:36] LABS: GLUCOMETER DEV NAME(LOC) 5S.1B; GLUCOSE,POINT OF CARE 137 MG/DL (70-110)
[2023-08-01 06:55] LABS: BASOPHILS % (AUTO) 0.2 % (0.0-2.0); HEMATOCRIT 29.1 % (36-46); HEMOGLOBIN 9.8 g/dL (12.0-16.0); LYMPHOCYTES % (AUTO) 4.8 % (22.0-44.0); MEAN CORPUSCULAR HEMOGLOBIN 30.2 pg (26.0-34.0); MEAN CORPUSCULAR HGB CONC 33.6 G/dL (31.0-37.0); MEAN CORPUSCULAR VOLUME 90 fL (80-100); MONOCYTES # (AUTO) 1.4 K/uL (0.1-1.0); MONOCYTES % (AUTO) 6.7 % (2.0-9.0); PLATELET COUNT (AUTO) 222 K/uL (150-450); RED BLOOD CELL COUNT(AUTO) 3.25 MIL/uL (4.00-5.20); RED CELL DISTRIBUTION WIDTH 14.7 % (11.5-14.5); WHITE BLOOD COUNT (AUTO) 20.6 K/uL (4.5-11.0)
[2023-08-01 07:04] LABS: NEUTROPHILS % (AUTO) 87.3 % (40.0-70.0)
[2023-08-01 07:12] LABS: CALCIUM, TOTAL 7.8 mg/dL (8.8-10.5); CREATININE 5.39 mg/dL (0.60-1.30); PHOSPHORUS 6.2 mg/dL (2.5-4.9); POTASSIUM 3.7 mmol/L (3.5-5.1)
[2023-08-01 07:50] VITALS: BP 128/68; PULSE 71; RESP 18; TEMP 98.3
[2023-08-01] MEDS: SEVELAMER CARBONATE 800 MG TABLET PO SCH ×3 (08:00→17:42)
[2023-08-01] MEDS: BUMETANIDE 0.25 MG/ML 4 ML VIAL IVP SCH ×3 (08:42→21:21)
[2023-08-01] MEDS: METOPROLOL TARTRATE 25 MG TABLET PO SCH ×2 (08:42→21:22)
[2023-08-01] MEDS: HydrALAZINE HCL 50 MG TABLET PO SCH ×2 (08:43→16:25)
[2023-08-01] MEDS: DOCUSATE SODIUM 100 MG CAPSULE PO SCH ×2 (08:43→21:22)
[2023-08-01] MEDS: HEPARIN SODIUM,PORCINE 5,000 UNITS/ML VIAL SQ SCH ×2 (08:43→16:25)
[2023-08-01] MEDS: AmLODIPine BESYLATE 5 MG TABLET PO SCH ×2 (08:43→21:22)
[2023-08-01] MEDS: HYDROCODONE/ACETAMINOPHEN 5-325 MG TABLET PO PRN ×2 (12:36→21:21)
[2023-08-01] MEDS: INSULIN LISPRO 100 UNITS/ML SQ PRN ×3 (12:37→21:29)
[2023-08-01 14:11] VITALS: BP 131/70; PULSE 74; RESP 18; TEMP 98
[2023-08-01 16:06] VITALS: BP 135/72; PULSE 69; RESP 17; TEMP 98.5
[2023-08-01 17:16] LABS: GLUCOMETER DEV NAME(LOC) 5N.1C; GLUCOSE,POINT OF CARE 164 MG/DL (70-110)
[2023-08-01 17:16] LABS: GLUCOMETER DEV NAME(LOC) 5N.1C; GLUCOSE,POINT OF CARE 254 MG/DL (70-110)
[2023-08-01 20:00] VITALS: BP 118/63; PULSE 70; RESP 18; TEMP 98.3
[2023-08-01 20:31] LABS: GLUCOMETER DEV NAME(LOC) 5N.1C; GLUCOSE,POINT OF CARE 186 MG/DL (70-110)
[2023-08-01] MEDS: AMPICILLIN SODIUM/SULBACTAM NA 3 GM in SODIUM CHLORIDE 0.9% 100 ML IV SCH (21:21)
[2023-08-01] MEDS: ATORVASTATIN CALCIUM 40 MG TABLET PO SCH (21:22)
[2023-08-01] MEDS: CHLORHEXIDINE GLUCONATE 2% TOWELETTE [2'S/6'S] TP SCH (21:22)
[2023-08-01] MEDS ORDERED: SODIUM CHLORIDE 0.9% 250 ML IV ONE (22:34)
[2023-08-02] MEDS: HEPARIN SODIUM,PORCINE 5,000 UNITS/ML VIAL SQ SCH ×3 (00:05→16:00)
[2023-08-02 00:29] VITALS: BP 101/62; PULSE 71; RESP 17; TEMP 98.3
[2023-08-02 03:51] LABS: GLUCOMETER DEV NAME(LOC) 5S.1B; GLUCOSE,POINT OF CARE 202 MG/DL (70-110)
[2023-08-02 04:29] VITALS: BP 120/62; PULSE 73; RESP 16; TEMP 98.5
[2023-08-02 06:41] LABS: EOSINOPHILS % (AUTO) 1.7 % (1.0-6.0); HEMOGLOBIN 9.9 g/dL (12.0-16.0); LYMPHOCYTES # (AUTO) 1.5 K/uL (1.0-4.8); LYMPHOCYTES % (AUTO) 8.7 % (22.0-44.0); MEAN CORPUSCULAR HEMOGLOBIN 29.6 pg (26.0-34.0); MEAN CORPUSCULAR VOLUME 90 fL (80-100); MONOCYTES # (AUTO) 1.5 K/uL (0.1-1.0); MONOCYTES % (AUTO) 8.7 % (2.0-9.0); NEUTROPHILS # (AUTO) 14.1 K/uL (1.8-7.7); NEUTROPHILS % (AUTO) 80.9 % (40.0-70.0); PLATELET COUNT (AUTO) 183 K/uL (150-450); RED BLOOD CELL COUNT(AUTO) 3.35 MIL/uL (4.00-5.20); RED CELL DISTRIBUTION WIDTH 14.3 % (11.5-14.5); WHITE BLOOD COUNT (AUTO) 17.5 K/uL (4.5-11.0)
[2023-08-02 07:04] LABS: CALCIUM, TOTAL 7.8 mg/dL (8.8-10.5); PHOSPHORUS 6.8 mg/dL (2.5-4.9); POTASSIUM 3.8 mmol/L (3.5-5.1); VANCOMYCIN,RANDOM 28.4 mcg/mL (25.0-50.0)
[2023-08-02 08:23] VITALS: BP 118/67; PULSE 80; RESP 19; TEMP 99
[2023-08-02] MEDS: SEVELAMER CARBONATE 800 MG TABLET PO SCH ×3 (09:37→18:16)
[2023-08-02] MEDS: DOCUSATE SODIUM 100 MG CAPSULE PO SCH ×2 (09:37→20:54)
[2023-08-02] MEDS: METOPROLOL TARTRATE 25 MG TABLET PO SCH ×2 (09:38→20:54)
[2023-08-02] MEDS: AmLODIPine BESYLATE 5 MG TABLET PO SCH ×2 (09:38→21:00)
[2023-08-02] MEDS: EPOETIN ALFA 10,000 UNITS/ML VIAL SQ SCH (09:46)
[2023-08-02 10:58] VITALS: BP 132/73; PULSE 83; RESP 19; TEMP 99.2
[2023-08-02 11:01] LABS: GLUCOMETER DEV NAME(LOC) 5S.1B; GLUCOSE,POINT OF CARE 111 MG/DL (70-110)
[2023-08-02] MEDS: BUMETANIDE 0.25 MG/ML 4 ML VIAL IVP SCH ×3 (11:55→20:54)
[2023-08-02] MEDS: HydrALAZINE HCL 50 MG TABLET PO SCH ×3 (11:55→16:55)
[2023-08-02] MEDS: INSULIN LISPRO 100 UNITS/ML SQ PRN ×3 (12:11→20:56)
[2023-08-02 12:31] LABS: GLUCOMETER DEV NAME(LOC) 5N.1C; GLUCOSE,POINT OF CARE 217 MG/DL (70-110)
[2023-08-02 16:16] VITALS: BP 130/57; PULSE 83; RESP 18; TEMP 98.9
[2023-08-02 17:46] LABS: GLUCOMETER DEV NAME(LOC) 5N.1C; GLUCOSE,POINT OF CARE 158 MG/DL (70-110)
[2023-08-02 20:03] VITALS: BP 103/56; PULSE 85; RESP 18; TEMP 98.3
[2023-08-02] MEDS: AMPICILLIN SODIUM/SULBACTAM NA 3 GM in SODIUM CHLORIDE 0.9% 100 ML IV SCH (20:54)
[2023-08-02] MEDS: ATORVASTATIN CALCIUM 40 MG TABLET PO SCH (20:54)
[2023-08-02] MEDS: CHLORHEXIDINE GLUCONATE 2% TOWELETTE [2'S/6'S] TP SCH (21:15)
[2023-08-03] VITALS (7 sets, daily range): BP systolic 99–143; BP diastolic 54–78; PULSE 72–78; RESP 16–18; TEMP 97.6–98.5
[2023-08-03 05:26] LABS: GLUCOMETER DEV NAME(LOC) 5N.1C; GLUCOSE,POINT OF CARE 150 MG/DL (70-110)
[2023-08-03 07:10] LABS: CALCIUM, TOTAL 7.9 mg/dL (8.8-10.5); CREATININE 6.41 mg/dL (0.60-1.30); MAGNESIUM 2.1 mg/dL (1.80-2.40); PHOSPHORUS 6.9 mg/dL (2.5-4.9); POTASSIUM 3.8 mmol/L (3.5-5.1)
[2023-08-03 07:26] LABS: GLUCOMETER DEV NAME(LOC) 5N.1C; GLUCOSE,POINT OF CARE 111 MG/DL (70-110)
[2023-08-03] MEDS: HEPARIN SODIUM,PORCINE 5,000 UNITS/ML VIAL SQ SCH ×3 (08:00→15:41)
[2023-08-03 08:04] LABS: BASOPHILS % (AUTO) 0.1 % (0.0-2.0); EOSINOPHILS % (AUTO) 1.5 % (1.0-6.0); HEMATOCRIT 28.1 % (36-46); HEMOGLOBIN 9.2 g/dL (12.0-16.0); LYMPHOCYTES # (AUTO) 1.6 K/uL (1.0-4.8); LYMPHOCYTES % (AUTO) 8.8 % (22.0-44.0); MEAN CORPUSCULAR HEMOGLOBIN 29.5 pg (26.0-34.0); MEAN CORPUSCULAR HGB CONC 32.7 G/dL (31.0-37.0); MEAN CORPUSCULAR VOLUME 90 fL (80-100); MONOCYTES # (AUTO) 1.9 K/uL (0.1-1.0); MONOCYTES % (AUTO) 10.2 % (2.0-9.0); NEUTROPHILS # (AUTO) 14.6 K/uL (1.8-7.7); NEUTROPHILS % (AUTO) 79.4 % (40.0-70.0); PLATELET COUNT (AUTO) 178 K/uL (150-450); RED BLOOD CELL COUNT(AUTO) 3.12 MIL/uL (4.00-5.20); RED CELL DISTRIBUTION WIDTH 14.6 % (11.5-14.5); WHITE BLOOD COUNT (AUTO) 18.5 K/uL (4.5-11.0)
[2023-08-03] MEDS: SODIUM CHLORIDE 1 GM TABLET PO SCH ×3 (08:22→22:03)
[2023-08-03] MEDS: HydrALAZINE HCL 50 MG TABLET PO SCH ×3 (08:22→15:39)
[2023-08-03] MEDS: AmLODIPine BESYLATE 5 MG TABLET PO SCH ×2 (08:22→22:04)
[2023-08-03] MEDS: SEVELAMER CARBONATE 800 MG TABLET PO SCH ×3 (08:23→17:37)
[2023-08-03] MEDS: BUMETANIDE 0.25 MG/ML 4 ML VIAL IVP SCH ×3 (08:23→22:05)
[2023-08-03] MEDS: METOPROLOL TARTRATE 25 MG TABLET PO SCH ×2 (08:23→22:03)
[2023-08-03] MEDS: HYDROCODONE/ACETAMINOPHEN 5-325 MG TABLET PO PRN ×3 (08:23→22:03)
[2023-08-03] MEDS: DOCUSATE SODIUM 100 MG CAPSULE PO SCH ×2 (09:00→21:00)
[2023-08-03] MEDS: INSULIN LISPRO 100 UNITS/ML SQ PRN ×3 (12:07→22:07)
[2023-08-03 13:25] LABS: ALBUMIN 1.1 g/dL (3.4-5.0); BILIRUBIN,DIRECT 0.1 mg/dL (0.00-0.20); BILIRUBIN,TOTAL 0.3 mg/dL (0.1-1.0); TOTAL PROTEIN, SERUM 6.2 g/dL (6.4-8.2)
[2023-08-03] MEDS: NAFCILLIN SODIUM 2 GM in DEXTROSE 5%-WATER 100 ML IV SCH ×3 (14:56→22:20)
[2023-08-03 18:02] LABS: GLUCOMETER DEV NAME(LOC) 5S.1B; GLUCOSE,POINT OF CARE 185 MG/DL (70-110)
[2023-08-03 20:21] LABS: GLUCOMETER DEV NAME(LOC) 5N.1C; GLUCOSE,POINT OF CARE 174 MG/DL (70-110)
[2023-08-03] MEDS: ATORVASTATIN CALCIUM 40 MG TABLET PO SCH (22:04)
[2023-08-03] MEDS: CHLORHEXIDINE GLUCONATE 2% TOWELETTE [2'S/6'S] TP SCH (22:05)
[2023-08-04 00:01] LABS: GLUCOMETER DEV NAME(LOC) 5S.1B; GLUCOSE,POINT OF CARE 192 MG/DL (70-110)
[2023-08-04] MEDS: HydrALAZINE HCL 50 MG TABLET PO SCH ×3 (00:01→17:14)
[2023-08-04] MEDS: HEPARIN SODIUM,PORCINE 5,000 UNITS/ML VIAL SQ SCH ×3 (00:01→16:00)
[2023-08-04] MEDS: NAFCILLIN SODIUM 2 GM in DEXTROSE 5%-WATER 100 ML IV SCH ×6 (01:48→22:11)
[2023-08-04 04:33] VITALS: BP 138/68; PULSE 76; RESP 18; TEMP 97.5
[2023-08-04] MEDS: HYDROCODONE/ACETAMINOPHEN 5-325 MG TABLET PO PRN ×2 (06:54→22:10)
[2023-08-04] MEDS: INSULIN LISPRO 100 UNITS/ML SQ PRN ×4 (06:56→20:43)
[2023-08-04 07:45] VITALS: BP 126/58; PULSE 72; RESP 18; TEMP 98
[2023-08-04] MEDS: SEVELAMER CARBONATE 800 MG TABLET PO SCH ×3 (08:55→17:39)
[2023-08-04] MEDS: SODIUM CHLORIDE 1 GM TABLET PO SCH ×3 (08:56→20:26)
[2023-08-04] MEDS: AmLODIPine BESYLATE 5 MG TABLET PO SCH ×2 (08:56→20:26)
[2023-08-04] MEDS: DOCUSATE SODIUM 100 MG CAPSULE PO SCH ×2 (08:56→20:26)
[2023-08-04] MEDS: METOPROLOL TARTRATE 25 MG TABLET PO SCH ×2 (08:56→20:26)
[2023-08-04] MEDS: BUMETANIDE 0.25 MG/ML 4 ML VIAL IVP SCH ×3 (10:22→20:27)
[2023-08-04 12:30] VITALS: BP 124/64; PULSE 68; RESP 18; TEMP 98
[2023-08-04 12:31] LABS: CALCIUM, TOTAL 7.4 mg/dL (8.8-10.5); CREATININE 6.38 mg/dL (0.60-1.30); MAGNESIUM 2.3 mg/dL (1.80-2.40); POTASSIUM 3.7 mmol/L (3.5-5.1)
[2023-08-04 16:20] VITALS: BP 130/68; PULSE 68; RESP 18; TEMP 98
[2023-08-04 20:09] VITALS: BP 129/65; PULSE 75; RESP 18; TEMP 98.3
[2023-08-04] MEDS: ATORVASTATIN CALCIUM 40 MG TABLET PO SCH (20:26)
[2023-08-04] MEDS: CHLORHEXIDINE GLUCONATE 2% TOWELETTE [2'S/6'S] TP SCH (22:11)
[2023-08-05] VITALS (17 sets, daily range): BP systolic 90–156; BP diastolic 53–79; PULSE 70–103; RESP 18–19; TEMP 97.7–98.6
[2023-08-05] MEDS: HEPARIN SODIUM,PORCINE 5,000 UNITS/ML VIAL SQ SCH
[2023-08-05] MEDS: NAFCILLIN SODIUM 2 GM in DEXTROSE 5%-WATER 100 ML IV SCH ×6 (02:05→23:11)
[2023-08-05 05:37] LABS: GLUCOMETER DEV NAME(LOC) 5S.1B; GLUCOSE,POINT OF CARE 205 MG/DL (70-110)
[2023-08-05 05:37] LABS: GLUCOMETER DEV NAME(LOC) 5N.1C; GLUCOSE,POINT OF CARE 184 MG/DL (70-110)
[2023-08-05 05:37] LABS: GLUCOMETER DEV NAME(LOC) 5N.1C; GLUCOSE,POINT OF CARE 179 MG/DL (70-110)
[2023-08-05 05:37] LABS: GLUCOMETER DEV NAME(LOC) 5N.1C; GLUCOSE,POINT OF CARE 169 MG/DL (70-110)
[2023-08-05] MEDS: SEVELAMER CARBONATE 800 MG TABLET PO SCH ×3 (08:00→20:05)
[2023-08-05] MEDS: HydrALAZINE HCL 50 MG TABLET PO SCH ×4 (08:00→23:11)
[2023-08-05 08:47] LABS: BASOPHILS % (AUTO) 0.3 % (0.0-2.0); EOSINOPHILS % (AUTO) 1.2 % (1.0-6.0); HEMATOCRIT 29.6 % (36-46); HEMOGLOBIN 9.8 g/dL (12.0-16.0); LYMPHOCYTES % (AUTO) 6.5 % (22.0-44.0); MEAN CORPUSCULAR HEMOGLOBIN 29.8 pg (26.0-34.0); MEAN CORPUSCULAR VOLUME 90 fL (80-100); MONOCYTES # (AUTO) 0.8 K/uL (0.1-1.0); MONOCYTES % (AUTO) 5.2 % (2.0-9.0); NEUTROPHILS # (AUTO) 13.1 K/uL (1.8-7.7); PLATELET COUNT (AUTO) 192 K/uL (150-450); RED BLOOD CELL COUNT(AUTO) 3.29 MIL/uL (4.00-5.20); RED CELL DISTRIBUTION WIDTH 14.6 % (11.5-14.5)
[2023-08-05 08:52] LABS: NEUTROPHILS % (AUTO) 86.8 % (40.0-70.0)
[2023-08-05] MEDS: AmLODIPine BESYLATE 5 MG TABLET PO SCH ×2 (09:00→20:06)
[2023-08-05] MEDS: SODIUM CHLORIDE 1 GM TABLET PO SCH ×3 (09:00→21:53)
[2023-08-05] MEDS: BUMETANIDE 0.25 MG/ML 4 ML VIAL IVP SCH ×3 (09:00→21:53)
[2023-08-05] MEDS: DOCUSATE SODIUM 100 MG CAPSULE PO SCH ×2 (09:00→20:06)
[2023-08-05] MEDS: METOPROLOL TARTRATE 25 MG TABLET PO SCH ×2 (09:00→20:05)
[2023-08-05 09:30] LABS: C-REACTIVE PROTEIN QUANT 4.54 mg/dL (0.00-0.30); CALCIUM, TOTAL 7.3 mg/dL (8.8-10.5); CREATININE 6.61 mg/dL (0.60-1.30); POTASSIUM 3.8 mmol/L (3.5-5.1)
[2023-08-05] MEDS ORDERED: HEPARIN SODIUM,PORCINE 1,000 UNITS/ML VIAL IVCATH ONE ×2 (10:45)
[2023-08-05] MEDS ORDERED: MIDODRINE HCL 5 MG TABLET PO ONE (10:45)
[2023-08-05] MEDS ORDERED: ALBUMIN HUMAN 25%-25GM/100ML 100 ML IV ONE (11:00)
[2023-08-05 11:06] LABS: INR 1.2 (0.9-1.1); PROTHROMBIN TIME 12.8 SEC (9.4-11.6)
[2023-08-05] MEDS ORDERED: HEPARIN SODIUM,PORCINE 1,000 UNITS/ML VIAL IVP ONE (12:00)
[2023-08-05] MEDS ORDERED: LIDOCAINE/PF 1% 30 ML VIAL ONE (14:00)
[2023-08-05] MEDS ORDERED: LIDOCAINE 1%/EPI 1:200,000/PF 10 ML VIAL ONE (14:02)
[2023-08-05] MEDS ORDERED: FentaNYL CITRATE PF 100 MCG/2 ML VIAL ONE (14:30)
[2023-08-05] MEDS ORDERED: MIDAZOLAM HCL 2 MG/2 ML VIAL ONE (14:30)
[2023-08-05] MEDS ORDERED: FentaNYL CITRATE PF 100 MCG/2 ML VIAL IVP ONE ×2 (14:45)
[2023-08-05] MEDS ORDERED: MIDAZOLAM HCL 2 MG/2 ML VIAL IVP ONE ×2 (14:45)
[2023-08-05 18:37] LABS: GLUCOMETER DEV NAME(LOC) 5N.1C; GLUCOSE,POINT OF CARE 115 MG/DL (70-110)
[2023-08-05] MEDS ORDERED: SODIUM CHLORIDE 0.9% 2,000 ML ONE (18:47)
[2023-08-05 18:56] LABS: GLUCOMETER DEV NAME(LOC) 5S.1B; GLUCOSE,POINT OF CARE 129 MG/DL (70-110)
[2023-08-05 18:56] LABS: GLUCOMETER DEV NAME(LOC) 5S.1B; GLUCOSE,POINT OF CARE 190 MG/DL (70-110)
[2023-08-05] MEDS: ATORVASTATIN CALCIUM 40 MG TABLET PO SCH (20:05)
[2023-08-05] MEDS: ACETAMINOPHEN 325 MG TABLET PO PRN (20:06)
[2023-08-05] MEDS: INSULIN LISPRO 100 UNITS/ML SQ PRN (20:18)
[2023-08-05] MEDS ORDERED: SODIUM CHLORIDE 0.9% 500 ML IV ONE (23:14)
[2023-08-05] MEDS: CHLORHEXIDINE GLUCONATE 2% TOWELETTE [2'S/6'S] TP SCH (23:15)
[2023-08-06] VITALS (15 sets, daily range): BP systolic 96–163; BP diastolic 54–87; PULSE 62–82; RESP 18–20; TEMP 97.8–98.8
[2023-08-06] MEDS: NAFCILLIN SODIUM 2 GM in DEXTROSE 5%-WATER 100 ML IV SCH ×6 (02:50→23:45)
[2023-08-06 06:06] LABS: GLUCOMETER DEV NAME(LOC) 5N.1C; GLUCOSE,POINT OF CARE 153 MG/DL (70-110)
[2023-08-06 06:36] LABS: GLUCOMETER DEV NAME(LOC) 5N.1C; GLUCOSE,POINT OF CARE 102 MG/DL (70-110)
[2023-08-06 06:53] LABS: BASOPHILS % (AUTO) 0.4 % (0.0-2.0); EOSINOPHILS % (AUTO) 0.5 % (1.0-6.0); HEMATOCRIT 26.3 % (36-46); HEMOGLOBIN 8.7 g/dL (12.0-16.0); LYMPHOCYTES # (AUTO) 1.3 K/uL (1.0-4.8); LYMPHOCYTES % (AUTO) 8.2 % (22.0-44.0); MEAN CORPUSCULAR HEMOGLOBIN 29.9 pg (26.0-34.0); MEAN CORPUSCULAR HGB CONC 32.9 G/dL (31.0-37.0); MEAN CORPUSCULAR VOLUME 91 fL (80-100); MONOCYTES # (AUTO) 1.5 K/uL (0.1-1.0); MONOCYTES % (AUTO) 9.7 % (2.0-9.0); NEUTROPHILS # (AUTO) 12.9 K/uL (1.8-7.7); NEUTROPHILS % (AUTO) 81.2 % (40.0-70.0); PLATELET COUNT (AUTO) 134 K/uL (150-450); RED CELL DISTRIBUTION WIDTH 15.2 % (11.5-14.5); WHITE BLOOD COUNT (AUTO) 15.9 K/uL (4.5-11.0)
[2023-08-06 07:16] LABS: CALCIUM, TOTAL 7.7 mg/dL (8.8-10.5); MAGNESIUM 2.3 mg/dL (1.80-2.40); PHOSPHORUS 4.6 mg/dL (2.5-4.9); POTASSIUM 3.7 mmol/L (3.5-5.1)
[2023-08-06] MEDS: DOCUSATE SODIUM 100 MG CAPSULE PO SCH ×2 (09:33→20:52)
[2023-08-06] MEDS: SEVELAMER CARBONATE 800 MG TABLET PO SCH ×3 (09:33→18:26)
[2023-08-06] MEDS: HydrALAZINE HCL 50 MG TABLET PO SCH ×2 (09:33→18:26)
[2023-08-06] MEDS: AmLODIPine BESYLATE 5 MG TABLET PO SCH ×2 (09:33→20:52)
[2023-08-06] MEDS: SODIUM CHLORIDE 1 GM TABLET PO SCH ×3 (09:33→20:52)
[2023-08-06] MEDS: METOPROLOL TARTRATE 25 MG TABLET PO SCH ×2 (09:33→20:52)
[2023-08-06] MEDS: BUMETANIDE 0.25 MG/ML 4 ML VIAL IVP SCH ×3 (10:22→20:52)
[2023-08-06] MEDS: INSULIN LISPRO 100 UNITS/ML SQ PRN ×2 (13:08→21:04)
[2023-08-06] MEDS ORDERED: SODIUM CHLORIDE 0.9% 2,000 ML ONE (13:59)
[2023-08-06] MEDS: HYDROCODONE/ACETAMINOPHEN 5-325 MG TABLET PO PRN ×2 (14:16→21:00)
[2023-08-06 19:16] LABS: GLUCOMETER DEV NAME(LOC) 5N.2C; GLUCOSE,POINT OF CARE 130 MG/DL (70-110)
[2023-08-06 19:16] LABS: GLUCOMETER DEV NAME(LOC) 5N.2C; GLUCOSE,POINT OF CARE 148 MG/DL (70-110)
[2023-08-06] MEDS: ATORVASTATIN CALCIUM 40 MG TABLET PO SCH (20:52)
[2023-08-06 21:27] LABS: GLUCOMETER DEV NAME(LOC) 5S.2C; GLUCOSE,POINT OF CARE 221 MG/DL (70-110)
[2023-08-06] MEDS: CHLORHEXIDINE GLUCONATE 2% TOWELETTE [2'S/6'S] TP SCH (23:45)
[2023-08-07 00:20] VITALS: BP 121/73; PULSE 69; RESP 19; TEMP 97.9
[2023-08-07] MEDS: HydrALAZINE HCL 50 MG TABLET PO SCH ×3 (00:44→17:16)
[2023-08-07] MEDS: NAFCILLIN SODIUM 2 GM in DEXTROSE 5%-WATER 100 ML IV SCH ×3 (02:31→10:27)
[2023-08-07 05:46] VITALS: BP 117/66; PULSE 73; RESP 17; TEMP 98.2
[2023-08-07 06:32] LABS: BASOPHILS % (AUTO) 0.4 % (0.0-2.0); EOSINOPHILS % (AUTO) 1.2 % (1.0-6.0); HEMATOCRIT 27.5 % (36-46); LYMPHOCYTES # (AUTO) 1.1 K/uL (1.0-4.8); LYMPHOCYTES % (AUTO) 9.2 % (22.0-44.0); MEAN CORPUSCULAR HEMOGLOBIN 29.7 pg (26.0-34.0); MEAN CORPUSCULAR HGB CONC 32.5 G/dL (31.0-37.0); MEAN CORPUSCULAR VOLUME 91 fL (80-100); MONOCYTES # (AUTO) 1.2 K/uL (0.1-1.0); NEUTROPHILS # (AUTO) 9.8 K/uL (1.8-7.7); NEUTROPHILS % (AUTO) 79.2 % (40.0-70.0); PLATELET COUNT (AUTO) 127 K/uL (150-450); RED BLOOD CELL COUNT(AUTO) 3.01 MIL/uL (4.00-5.20); RED CELL DISTRIBUTION WIDTH 15.7 % (11.5-14.5); WHITE BLOOD COUNT (AUTO) 12.4 K/uL (4.5-11.0)
[2023-08-07 07:28] LABS: ALBUMIN 1.3 g/dL (3.4-5.0); CALCIUM, TOTAL 7.9 mg/dL (8.8-10.5); CREATININE 2.98 mg/dL (0.60-1.30); POTASSIUM 3.8 mmol/L (3.5-5.1)
[2023-08-07 08:11] VITALS: BP 119/67; PULSE 72; RESP 18; TEMP 98.4
[2023-08-07] MEDS: SODIUM CHLORIDE 1 GM TABLET PO SCH (08:53)
[2023-08-07] MEDS: SEVELAMER CARBONATE 800 MG TABLET PO SCH ×3 (08:53→17:16)
[2023-08-07] MEDS: BUMETANIDE 0.25 MG/ML 4 ML VIAL IVP SCH ×3 (08:54→21:49)
[2023-08-07] MEDS: METOPROLOL TARTRATE 25 MG TABLET PO SCH ×2 (08:54→21:48)
[2023-08-07] MEDS: AmLODIPine BESYLATE 5 MG TABLET PO SCH ×2 (08:56→21:48)
[2023-08-07] MEDS: DOCUSATE SODIUM 100 MG CAPSULE PO SCH ×2 (08:57→21:48)
[2023-08-07] MEDS: EPOETIN ALFA 10,000 UNITS/ML VIAL SQ SCH ×2 (09:09→09:33)
[2023-08-07 11:33] VITALS: BP 143/76; PULSE 78; RESP 19; TEMP 97.8
[2023-08-07] MEDS: INSULIN LISPRO 100 UNITS/ML SQ PRN ×2 (11:44→17:36)
[2023-08-07] MEDS ORDERED: SODIUM CHLORIDE 0.9% 100 ML ONE (13:45)
[2023-08-07] MEDS ORDERED: IOHEXOL 350 MG/ML 100 ML VIAL ONE (13:45)
[2023-08-07] MEDS ORDERED: CeFAZolin 1 GM/DEXTROSE 50 ML IV ONE (14:00)
[2023-08-07 16:16] VITALS: BP 156/88; PULSE 79; RESP 19; TEMP 97.9
[2023-08-07 20:24] VITALS: BP 163/92; PULSE 86; RESP 24; TEMP 98.2
[2023-08-07 20:36] LABS: GLUCOMETER DEV NAME(LOC) 5S.2C; GLUCOSE,POINT OF CARE 152 MG/DL (70-110)
[2023-08-07 20:36] LABS: GLUCOMETER DEV NAME(LOC) 5N.2C; GLUCOSE,POINT OF CARE 105 MG/DL (70-110)
[2023-08-07 20:36] LABS: GLUCOMETER DEV NAME(LOC) 5N.2C; GLUCOSE,POINT OF CARE 178 MG/DL (70-110)
[2023-08-07] MEDS: HYDROCODONE/ACETAMINOPHEN 5-325 MG TABLET PO PRN (21:48)
[2023-08-07] MEDS: ATORVASTATIN CALCIUM 40 MG TABLET PO SCH (21:48)
[2023-08-07] MEDS: CHLORHEXIDINE GLUCONATE 2% TOWELETTE [2'S/6'S] TP SCH (21:59)
[2023-08-08] VITALS (14 sets, daily range): BP systolic 117–172; BP diastolic 71–105; PULSE 74–92; RESP 17–19; TEMP 97.6–98.6
[2023-08-08] MEDS: HydrALAZINE HCL 50 MG TABLET PO SCH ×3 (00:47→16:00)
[2023-08-08 06:11] LABS: GLUCOMETER DEV NAME(LOC) 5S.2C; GLUCOSE,POINT OF CARE 101 MG/DL (70-110)
[2023-08-08] MEDS: BUMETANIDE 0.25 MG/ML 4 ML VIAL IVP SCH ×3 (08:25→20:42)
[2023-08-08] MEDS: SEVELAMER CARBONATE 800 MG TABLET PO SCH ×3 (08:25→18:24)
[2023-08-08] MEDS: METOPROLOL TARTRATE 25 MG TABLET PO SCH ×2 (08:25→20:42)
[2023-08-08] MEDS: DOCUSATE SODIUM 100 MG CAPSULE PO SCH ×2 (08:25→20:41)
[2023-08-08] MEDS: AmLODIPine BESYLATE 5 MG TABLET PO SCH ×2 (08:25→20:42)
[2023-08-08] MEDS: INSULIN LISPRO 100 UNITS/ML SQ PRN ×3 (13:18→20:53)
[2023-08-08] MEDS: HYDROCODONE/ACETAMINOPHEN 5-325 MG TABLET PO PRN (13:54)
[2023-08-08] MEDS ORDERED: CeFAZolin 2 GM/DEXTROSE 50 ML IV SCH (14:00)
[2023-08-08] MEDS ORDERED: MetroNIDAZOLE 500 MG TABLET PO SCH (16:00)
[2023-08-08] MEDS: AMPICILLIN SODIUM/SULBACTAM NA 3 GM in SODIUM CHLORIDE 0.9% 100 ML IV SCH (18:30)
[2023-08-08] MEDS: ATORVASTATIN CALCIUM 40 MG TABLET PO SCH (20:42)
[2023-08-08] MEDS: CHLORHEXIDINE GLUCONATE 2% TOWELETTE [2'S/6'S] TP SCH (22:49)
[2023-08-09] VITALS: BP 155/67; PULSE 87; RESP 18; TEMP 98.4
[2023-08-09 00:06] LABS: GLUCOMETER DEV NAME(LOC) 5S.2C; GLUCOSE,POINT OF CARE 150 MG/DL (70-110)
[2023-08-09 00:06] LABS: GLUCOMETER DEV NAME(LOC) 5S.2C; GLUCOSE,POINT OF CARE 176 MG/DL (70-110)
[2023-08-09 00:06] LABS: GLUCOMETER DEV NAME(LOC) 5S.2C; GLUCOSE,POINT OF CARE 198 MG/DL (70-110)
[2023-08-09] MEDS: HydrALAZINE HCL 50 MG TABLET PO SCH ×3 (00:10→17:10)
[2023-08-09 04:00] VITALS: BP 150/83; PULSE 85; RESP 18; TEMP 98
[2023-08-09 06:56] LABS: BASOPHILS % (AUTO) 0.2 % (0.0-2.0); EOSINOPHILS % (AUTO) 0.8 % (1.0-6.0); HEMATOCRIT 26.3 % (36-46); HEMOGLOBIN 8.7 g/dL (12.0-16.0); LYMPHOCYTES # (AUTO) 1.2 K/uL (1.0-4.8); LYMPHOCYTES % (AUTO) 7.9 % (22.0-44.0); MEAN CORPUSCULAR HEMOGLOBIN 30.2 pg (26.0-34.0); MEAN CORPUSCULAR HGB CONC 33.1 G/dL (31.0-37.0); MEAN CORPUSCULAR VOLUME 91 fL (80-100); MONOCYTES # (AUTO) 1.3 K/uL (0.1-1.0); MONOCYTES % (AUTO) 8.3 % (2.0-9.0); NEUTROPHILS # (AUTO) 12.6 K/uL (1.8-7.7); NEUTROPHILS % (AUTO) 82.8 % (40.0-70.0); PLATELET COUNT (AUTO) 164 K/uL (150-450); RED BLOOD CELL COUNT(AUTO) 2.88 MIL/uL (4.00-5.20); RED CELL DISTRIBUTION WIDTH 16.5 % (11.5-14.5); WHITE BLOOD COUNT (AUTO) 15.2 K/uL (4.5-11.0)
[2023-08-09 07:16] LABS: C-REACTIVE PROTEIN QUANT 3.17 mg/dL (0.00-0.30); CALCIUM, TOTAL 8.4 mg/dL (8.8-10.5); CREATININE 2.67 mg/dL (0.60-1.30); POTASSIUM 3.3 mmol/L (3.5-5.1)
[2023-08-09 07:22] LABS: MAGNESIUM 1.9 mg/dL (1.80-2.40); PHOSPHORUS 3.4 mg/dL (2.5-4.9)
[2023-08-09 07:37] VITALS: BP 155/87; PULSE 81; RESP 18; TEMP 99.4
[2023-08-09 08:52] LABS: GLUCOMETER DEV NAME(LOC) 5S.2C; GLUCOSE,POINT OF CARE 104 MG/DL (70-110)
[2023-08-09] MEDS: DOCUSATE SODIUM 100 MG CAPSULE PO SCH ×3 (09:00→21:13)
[2023-08-09] MEDS: SEVELAMER CARBONATE 800 MG TABLET PO SCH ×3 (09:20→18:29)
[2023-08-09] MEDS: AmLODIPine BESYLATE 5 MG TABLET PO SCH ×2 (09:21→21:14)
[2023-08-09] MEDS: METOPROLOL TARTRATE 25 MG TABLET PO SCH (09:21)
[2023-08-09] MEDS: BUMETANIDE 0.25 MG/ML 4 ML VIAL IVP SCH ×3 (09:26→21:13)
[2023-08-09] MEDS: INSULIN LISPRO 100 UNITS/ML SQ PRN ×2 (11:51→21:15)
[2023-08-09] MEDS: EPOETIN ALFA 10,000 UNITS/ML VIAL SQ SCH (11:52)
[2023-08-09 12:11] LABS: GLUCOMETER DEV NAME(LOC) 5S.2C; GLUCOSE,POINT OF CARE 165 MG/DL (70-110)
[2023-08-09 12:31] VITALS: BP 152/89; PULSE 83; RESP 19; TEMP 98.5
[2023-08-09] MEDS ORDERED: POTASSIUM CHLORIDE 20 MEQ ER TABLET PO ONE (14:15)
[2023-08-09] MEDS: PredniSONE 20 MG TABLET PO SCH (15:40)
[2023-08-09] MEDS: AMPICILLIN SODIUM/SULBACTAM NA 3 GM in SODIUM CHLORIDE 0.9% 100 ML IV SCH (15:41)
[2023-08-09 15:54] VITALS: BP 151/96; PULSE 89; RESP 18; TEMP 98.5
[2023-08-09] MEDS ORDERED: HEPARIN SODIUM,PORCINE 1,000 UNITS/ML VIAL IVP ONE (17:34)
[2023-08-09 18:31] LABS: GLUCOMETER DEV NAME(LOC) 5S.2C; GLUCOSE,POINT OF CARE 129 MG/DL (70-110)
[2023-08-09 19:59] LABS: CALCIUM, TOTAL 8.2 mg/dL (8.8-10.5); CREATININE 3.31 mg/dL (0.60-1.30); POTASSIUM 3.8 mmol/L (3.5-5.1)
[2023-08-09 20:26] VITALS: BP 155/75; PULSE 92; RESP 19; TEMP 98.5
[2023-08-09] MEDS: METOPROLOL TARTRATE 50 MG TABLET PO SCH (21:13)
[2023-08-09] MEDS: ATORVASTATIN CALCIUM 40 MG TABLET PO SCH (21:14)
[2023-08-09] MEDS: CHLORHEXIDINE GLUCONATE 2% TOWELETTE [2'S/6'S] TP SCH (22:35)
[2023-08-10] VITALS (7 sets, daily range): BP systolic 117–169; BP diastolic 72–100; PULSE 73–84; RESP 16–18; TEMP 97.5–99.5
[2023-08-10] MEDS: HydrALAZINE HCL 50 MG TABLET PO SCH ×4 (00:41→16:16)
[2023-08-10 06:42] LABS: BASOPHILS % (AUTO) 0.4 % (0.0-2.0); EOSINOPHILS % (AUTO) 0 % (1.0-6.0); HEMATOCRIT 26.3 % (36-46); HEMOGLOBIN 8.7 g/dL (12.0-16.0); LYMPHOCYTES % (AUTO) 5.8 % (22.0-44.0); MEAN CORPUSCULAR HEMOGLOBIN 30.2 pg (26.0-34.0); MEAN CORPUSCULAR VOLUME 91 fL (80-100); MONOCYTES # (AUTO) 0.7 K/uL (0.1-1.0); NEUTROPHILS # (AUTO) 15.2 K/uL (1.8-7.7); PLATELET COUNT (AUTO) 207 K/uL (150-450); RED BLOOD CELL COUNT(AUTO) 2.88 MIL/uL (4.00-5.20); RED CELL DISTRIBUTION WIDTH 15.9 % (11.5-14.5); WHITE BLOOD COUNT (AUTO) 16.9 K/uL (4.5-11.0)
[2023-08-10 06:52] LABS: CALCIUM, TOTAL 8.2 mg/dL (8.8-10.5); CREATININE 3.65 mg/dL (0.60-1.30); POTASSIUM 4.2 mmol/L (3.5-5.1)
[2023-08-10 07:08] LABS: NEUTROPHILS % (AUTO) 89.8 % (40.0-70.0)
[2023-08-10] MEDS: DOCUSATE SODIUM 100 MG CAPSULE PO SCH ×2 (09:00→21:00)
[2023-08-10] MEDS: METOPROLOL TARTRATE 50 MG TABLET PO SCH ×2 (09:05→21:01)
[2023-08-10] MEDS: SEVELAMER CARBONATE 800 MG TABLET PO SCH ×3 (09:05→18:20)
[2023-08-10] MEDS: BUMETANIDE 0.25 MG/ML 4 ML VIAL IVP SCH ×3 (09:05→21:02)
[2023-08-10] MEDS: PredniSONE 20 MG TABLET PO SCH (09:06)
[2023-08-10] MEDS: AmLODIPine BESYLATE 5 MG TABLET PO SCH ×2 (09:06→21:01)
[2023-08-10] MEDS: HydrALAZINE HCL 20 MG/ML VIAL IVP PRN (11:26)
[2023-08-10] MEDS: INSULIN LISPRO 100 UNITS/ML SQ PRN ×3 (11:33→21:03)
[2023-08-10] MEDS: AMPICILLIN SODIUM/SULBACTAM NA 3 GM in SODIUM CHLORIDE 0.9% 100 ML IV SCH (16:17)
[2023-08-10] MEDS: ATORVASTATIN CALCIUM 40 MG TABLET PO SCH (21:01)
[2023-08-10] MEDS: CHLORHEXIDINE GLUCONATE 2% TOWELETTE [2'S/6'S] TP SCH (21:06)
[2023-08-11] VITALS (14 sets, daily range): BP systolic 135–188; BP diastolic 72–97; PULSE 65–83; RESP 18–19; TEMP 97.9–98.6
[2023-08-11] MEDS: HydrALAZINE HCL 50 MG TABLET PO SCH ×3 (00:21→17:04)
[2023-08-11 01:41] LABS: GLUCOMETER DEV NAME(LOC) 5N.1C; GLUCOSE,POINT OF CARE 127 MG/DL (70-110)
[2023-08-11 06:31] LABS: GLUCOMETER DEV NAME(LOC) 5S.2C; GLUCOSE,POINT OF CARE 204 MG/DL (70-110)
[2023-08-11 06:31] LABS: GLUCOMETER DEV NAME(LOC) 5S.2C; GLUCOSE,POINT OF CARE 200 MG/DL (70-110)
[2023-08-11 06:31] LABS: GLUCOMETER DEV NAME(LOC) 5S.2C; GLUCOSE,POINT OF CARE 228 MG/DL (70-110)
[2023-08-11 06:31] LABS: GLUCOMETER DEV NAME(LOC) 5S.2C; GLUCOSE,POINT OF CARE 181 MG/DL (70-110)
[2023-08-11 06:34] LABS: BASOPHILS % (AUTO) 0.4 % (0.0-2.0); EOSINOPHILS % (AUTO) 0.2 % (1.0-6.0); HEMATOCRIT 26.1 % (36-46); HEMOGLOBIN 8.5 g/dL (12.0-16.0); LYMPHOCYTES % (AUTO) 9.3 % (22.0-44.0); MEAN CORPUSCULAR HEMOGLOBIN 29.9 pg (26.0-34.0); MEAN CORPUSCULAR HGB CONC 32.6 G/dL (31.0-37.0); MEAN CORPUSCULAR VOLUME 92 fL (80-100); MONOCYTES # (AUTO) 1.5 K/uL (0.1-1.0); NEUTROPHILS # (AUTO) 17.9 K/uL (1.8-7.7); NEUTROPHILS % (AUTO) 83.1 % (40.0-70.0); PLATELET COUNT (AUTO) 276 K/uL (150-450); RED BLOOD CELL COUNT(AUTO) 2.84 MIL/uL (4.00-5.20); RED CELL DISTRIBUTION WIDTH 15.7 % (11.5-14.5); WHITE BLOOD COUNT (AUTO) 21.5 K/uL (4.5-11.0)
[2023-08-11 07:08] LABS: CALCIUM, TOTAL 8.2 mg/dL (8.8-10.5); CREATININE 4.28 mg/dL (0.60-1.30); POTASSIUM 3.7 mmol/L (3.5-5.1)
[2023-08-11] MEDS: SEVELAMER CARBONATE 800 MG TABLET PO SCH ×3 (08:00→17:04)
[2023-08-11] MEDS: DOCUSATE SODIUM 100 MG CAPSULE PO SCH ×2 (09:00→20:39)
[2023-08-11] MEDS: PredniSONE 20 MG TABLET PO SCH (12:34)
[2023-08-11] MEDS: AmLODIPine BESYLATE 5 MG TABLET PO SCH ×2 (12:35→20:35)
[2023-08-11] MEDS: METOPROLOL TARTRATE 50 MG TABLET PO SCH ×2 (12:35→20:35)
[2023-08-11] MEDS: BUMETANIDE 0.25 MG/ML 4 ML VIAL IVP SCH ×3 (12:36→20:35)
[2023-08-11] MEDS: AMPICILLIN SODIUM/SULBACTAM NA 3 GM in SODIUM CHLORIDE 0.9% 100 ML IV SCH (15:06)
[2023-08-11] MEDS ORDERED: SODIUM CHLORIDE 0.9% 250 ML IV ONE (15:15)
[2023-08-11] MEDS: INSULIN LISPRO 100 UNITS/ML SQ PRN ×2 (17:08→20:37)
[2023-08-11] MEDS: ATORVASTATIN CALCIUM 40 MG TABLET PO SCH (20:35)
[2023-08-11 20:46] LABS: GLUCOMETER DEV NAME(LOC) 5S.1B; GLUCOSE,POINT OF CARE 106 MG/DL (70-110)
[2023-08-11 20:46] LABS: GLUCOMETER DEV NAME(LOC) 5S.1B; GLUCOSE,POINT OF CARE 246 MG/DL (70-110)
[2023-08-11 20:46] LABS: GLUCOMETER DEV NAME(LOC) 5S.1B; GLUCOSE,POINT OF CARE 204 MG/DL (70-110)
[2023-08-11 20:46] LABS: GLUCOMETER DEV NAME(LOC) 5S.1B; GLUCOSE,POINT OF CARE 103 MG/DL (70-110)
[2023-08-11] MEDS: CHLORHEXIDINE GLUCONATE 2% TOWELETTE [2'S/6'S] TP SCH (22:00)
[2023-08-12] VITALS (7 sets, daily range): BP systolic 144–174; BP diastolic 66–98; PULSE 18–78; RESP 16–19; TEMP 97.7–98.6
[2023-08-12] MEDS: HYDROCODONE/ACETAMINOPHEN 5-325 MG TABLET PO PRN (00:25)
[2023-08-12] MEDS: HydrALAZINE HCL 50 MG TABLET PO SCH ×4 (00:25→23:55)
[2023-08-12 06:45] LABS: BASOPHILS % (AUTO) 0.3 % (0.0-2.0); EOSINOPHILS % (AUTO) 0 % (1.0-6.0); HEMATOCRIT 26.2 % (36-46); HEMOGLOBIN 8.6 g/dL (12.0-16.0); LYMPHOCYTES # (AUTO) 1.4 K/uL (1.0-4.8); LYMPHOCYTES % (AUTO) 7.3 % (22.0-44.0); MEAN CORPUSCULAR HEMOGLOBIN 30.4 pg (26.0-34.0); MEAN CORPUSCULAR HGB CONC 32.7 G/dL (31.0-37.0); MEAN CORPUSCULAR VOLUME 93 fL (80-100); MONOCYTES # (AUTO) 1.3 K/uL (0.1-1.0); MONOCYTES % (AUTO) 6.7 % (2.0-9.0); NEUTROPHILS # (AUTO) 16.5 K/uL (1.8-7.7); PLATELET COUNT (AUTO) 301 K/uL (150-450); RED BLOOD CELL COUNT(AUTO) 2.82 MIL/uL (4.00-5.20); RED CELL DISTRIBUTION WIDTH 16.6 % (11.5-14.5); WHITE BLOOD COUNT (AUTO) 19.3 K/uL (4.5-11.0)
[2023-08-12 06:51] LABS: CALCIUM, TOTAL 7.7 mg/dL (8.8-10.5); CREATININE 3.22 mg/dL (0.60-1.30); POTASSIUM 4.2 mmol/L (3.5-5.1)
[2023-08-12 06:56] LABS: NEUTROPHILS % (AUTO) 85.7 % (40.0-70.0)
[2023-08-12] MEDS: PredniSONE 20 MG TABLET PO SCH (08:57)
[2023-08-12] MEDS: AmLODIPine BESYLATE 5 MG TABLET PO SCH ×2 (08:58→21:01)
[2023-08-12] MEDS: METOPROLOL TARTRATE 50 MG TABLET PO SCH ×2 (08:58→21:01)
[2023-08-12] MEDS: DOCUSATE SODIUM 100 MG CAPSULE PO SCH ×2 (08:58→21:00)
[2023-08-12] MEDS: BUMETANIDE 0.25 MG/ML 4 ML VIAL IVP SCH ×3 (08:58→21:02)
[2023-08-12] MEDS: SEVELAMER CARBONATE 800 MG TABLET PO SCH ×3 (08:58→17:21)
[2023-08-12] MEDS: EPOETIN ALFA 10,000 UNITS/ML VIAL SQ SCH (09:00)
[2023-08-12] MEDS: INSULIN LISPRO 100 UNITS/ML SQ PRN ×3 (12:20→20:59)
[2023-08-12] MEDS: AMPICILLIN SODIUM/SULBACTAM NA 3 GM in SODIUM CHLORIDE 0.9% 100 ML IV SCH (16:32)
[2023-08-12 20:11] LABS: GLUCOMETER DEV NAME(LOC) 5N.2C; GLUCOSE,POINT OF CARE 131 MG/DL (70-110)
[2023-08-12 20:11] LABS: GLUCOMETER DEV NAME(LOC) 5N.2C; GLUCOSE,POINT OF CARE 211 MG/DL (70-110)
[2023-08-12 20:11] LABS: GLUCOMETER DEV NAME(LOC) 5N.2C; GLUCOSE,POINT OF CARE 208 MG/DL (70-110)
[2023-08-12] MEDS: ATORVASTATIN CALCIUM 40 MG TABLET PO SCH (21:01)
[2023-08-12] MEDS: CHLORHEXIDINE GLUCONATE 2% TOWELETTE [2'S/6'S] TP SCH (22:00)
[2023-08-13] VITALS (16 sets, daily range): BP systolic 121–185; BP diastolic 70–98; PULSE 67–78; RESP 18; TEMP 97.3–98.5
[2023-08-13 00:41] LABS: GLUCOMETER DEV NAME(LOC) 5N.2C; GLUCOSE,POINT OF CARE 246 MG/DL (70-110)
[2023-08-13] MEDS ORDERED: IOHEXOL 350 MG/ML 100 ML VIAL ONE (03:43)
[2023-08-13] MEDS ORDERED: SODIUM CHLORIDE 0.9% 100 ML ONE (03:43)
[2023-08-13] MEDS: HydrALAZINE HCL 20 MG/ML VIAL IVP PRN (03:58)
[2023-08-13 07:03] LABS: BASOPHILS % (AUTO) 0.1 % (0.0-2.0); EOSINOPHILS % (AUTO) 0 % (1.0-6.0); HEMATOCRIT 25.8 % (36-46); HEMOGLOBIN 8.6 g/dL (12.0-16.0); LYMPHOCYTES # (AUTO) 2.2 K/uL (1.0-4.8); LYMPHOCYTES % (AUTO) 9.9 % (22.0-44.0); MEAN CORPUSCULAR HGB CONC 33.4 G/dL (31.0-37.0); MEAN CORPUSCULAR VOLUME 93 fL (80-100); MONOCYTES # (AUTO) 1.8 K/uL (0.1-1.0); MONOCYTES % (AUTO) 7.9 % (2.0-9.0); NEUTROPHILS # (AUTO) 18.4 K/uL (1.8-7.7); NEUTROPHILS % (AUTO) 82.1 % (40.0-70.0); PLATELET COUNT (AUTO) 341 K/uL (150-450); RED BLOOD CELL COUNT(AUTO) 2.78 MIL/uL (4.00-5.20); RED CELL DISTRIBUTION WIDTH 16.2 % (11.5-14.5); WHITE BLOOD COUNT (AUTO) 22.4 K/uL (4.5-11.0)
[2023-08-13 07:28] LABS: CREATININE 3.86 mg/dL (0.60-1.30); POTASSIUM 4.3 mmol/L (3.5-5.1)
[2023-08-13] MEDS: SEVELAMER CARBONATE 800 MG TABLET PO SCH ×3 (08:00→16:57)
[2023-08-13 08:32] LABS: GLUCOMETER DEV NAME(LOC) 5S.1B; GLUCOSE,POINT OF CARE 94 MG/DL (70-110)
[2023-08-13] MEDS: DOCUSATE SODIUM 100 MG CAPSULE PO SCH ×2 (09:00→21:22)
[2023-08-13] MEDS: METOPROLOL TARTRATE 50 MG TABLET PO SCH ×2 (09:27→21:22)
[2023-08-13] MEDS: AmLODIPine BESYLATE 5 MG TABLET PO SCH ×2 (09:27→21:24)
[2023-08-13] MEDS: HydrALAZINE HCL 50 MG TABLET PO SCH ×2 (09:27→16:57)
[2023-08-13] MEDS: PredniSONE 20 MG TABLET PO SCH (12:57)
[2023-08-13] MEDS ORDERED: HEPARIN SODIUM,PORCINE 1,000 UNITS/ML VIAL IVP ONE ×2 (14:31→14:34)
[2023-08-13] MEDS ORDERED: SODIUM CHLORIDE 0.9% 250 ML IV ONE (15:26)
[2023-08-13] MEDS: AMPICILLIN SODIUM/SULBACTAM NA 3 GM in SODIUM CHLORIDE 0.9% 100 ML IV SCH (16:04)
[2023-08-13] MEDS: BUMETANIDE 1 MG TABLET PO SCH ×2 (16:04→21:22)
[2023-08-13] MEDS: INSULIN LISPRO 100 UNITS/ML SQ PRN ×2 (17:20→21:36)
[2023-08-13] MEDS: HYDROCODONE/ACETAMINOPHEN 5-325 MG TABLET PO PRN (17:38)
[2023-08-13] MEDS: ATORVASTATIN CALCIUM 40 MG TABLET PO SCH (21:22)
[2023-08-13] MEDS: CHLORHEXIDINE GLUCONATE 2% TOWELETTE [2'S/6'S] TP SCH (21:24)
[2023-08-14] MEDS: HydrALAZINE HCL 50 MG TABLET PO SCH ×3 (00:09→16:19)
[2023-08-14 00:51] LABS: GLUCOMETER DEV NAME(LOC) 5S.1B; GLUCOSE,POINT OF CARE 116 MG/DL (70-110)
[2023-08-14 04:44] VITALS: BP 143/78; PULSE 72; RESP 18; TEMP 98.4
[2023-08-14 08:21] VITALS: BP 168/85; PULSE 67; RESP 18; TEMP 98.2
[2023-08-14] MEDS: BUMETANIDE 1 MG TABLET PO SCH ×2 (08:34→20:51)
[2023-08-14] MEDS: METOPROLOL TARTRATE 50 MG TABLET PO SCH ×2 (08:35→20:50)
[2023-08-14] MEDS: AmLODIPine BESYLATE 5 MG TABLET PO SCH ×2 (08:35→20:51)
[2023-08-14] MEDS: SEVELAMER CARBONATE 800 MG TABLET PO SCH ×3 (08:35→18:07)
[2023-08-14] MEDS: EPOETIN ALFA 10,000 UNITS/ML VIAL SQ SCH (08:35)
[2023-08-14] MEDS: DOCUSATE SODIUM 100 MG CAPSULE PO SCH ×2 (08:35→20:51)
[2023-08-14] MEDS: INSULIN LISPRO 100 UNITS/ML SQ PRN ×2 (11:34→20:56)
[2023-08-14 11:58] LABS: GLUCOMETER DEV NAME(LOC) 6N.2B; GLUCOSE,POINT OF CARE 111 MG/DL (70-110)
[2023-08-14 11:58] LABS: GLUCOMETER DEV NAME(LOC) 6S.2; GLUCOSE,POINT OF CARE 213 MG/DL (70-110)
[2023-08-14 12:01] LABS: GLUCOMETER DEV NAME(LOC) 4E.2; GLUCOSE,POINT OF CARE 194 MG/DL (70-110)
[2023-08-14 12:01] LABS: GLUCOMETER DEV NAME(LOC) 4E.2; GLUCOSE,POINT OF CARE 142 MG/DL (70-110)
[2023-08-14] MEDS: AMPICILLIN SODIUM/SULBACTAM NA 3 GM in SODIUM CHLORIDE 0.9% 100 ML IV SCH (14:28)
[2023-08-14 16:20] VITALS: BP 168/78; PULSE 69; RESP 19; TEMP 98
[2023-08-14] MEDS ORDERED: SERTRALINE HCL 100 MG TABLET PO SCH (18:00)
[2023-08-14 19:48] VITALS: BP 134/64; PULSE 69; RESP 18; TEMP 98.2
[2023-08-14 20:06] LABS: GLUCOMETER DEV NAME(LOC) 6N.2B; GLUCOSE,POINT OF CARE 121 MG/DL (70-110)
[2023-08-14] MEDS: ATORVASTATIN CALCIUM 40 MG TABLET PO SCH (20:51)
[2023-08-14] MEDS: CHLORHEXIDINE GLUCONATE 2% TOWELETTE [2'S/6'S] TP SCH (21:54)
[2023-08-14 23:51] LABS: GLUCOMETER DEV NAME(LOC) 6S.2; GLUCOSE,POINT OF CARE 149 MG/DL (70-110)
[2023-08-15] VITALS (14 sets, daily range): BP systolic 116–167; BP diastolic 64–88; PULSE 61–79; RESP 18–20; TEMP 98.4–99.3
[2023-08-15] MEDS: HydrALAZINE HCL 50 MG TABLET PO SCH ×4 (00:40→23:30)
[2023-08-15 06:41] LABS: BASOPHILS % (AUTO) 0.7 % (0.0-2.0); EOSINOPHILS % (AUTO) 1.2 % (1.0-6.0); HEMATOCRIT 27.1 % (36-46); HEMOGLOBIN 8.9 g/dL (12.0-16.0); LYMPHOCYTES # (AUTO) 1.5 K/uL (1.0-4.8); LYMPHOCYTES % (AUTO) 11.7 % (22.0-44.0); MEAN CORPUSCULAR HEMOGLOBIN 31.2 pg (26.0-34.0); MEAN CORPUSCULAR HGB CONC 32.8 G/dL (31.0-37.0); MEAN CORPUSCULAR VOLUME 95 fL (80-100); MONOCYTES % (AUTO) 8.3 % (2.0-9.0); NEUTROPHILS # (AUTO) 9.8 K/uL (1.8-7.7); NEUTROPHILS % (AUTO) 78.1 % (40.0-70.0); PLATELET COUNT (AUTO) 366 K/uL (150-450); RED BLOOD CELL COUNT(AUTO) 2.86 MIL/uL (4.00-5.20); RED CELL DISTRIBUTION WIDTH 19.9 % (11.5-14.5); WHITE BLOOD COUNT (AUTO) 12.5 K/uL (4.5-11.0)
[2023-08-15] MEDS: AmLODIPine BESYLATE 5 MG TABLET PO SCH ×2 (07:49→20:35)
[2023-08-15] MEDS: METOPROLOL TARTRATE 50 MG TABLET PO SCH ×2 (07:49→20:35)
[2023-08-15] MEDS: SEVELAMER CARBONATE 800 MG TABLET PO SCH ×3 (07:49→17:36)
[2023-08-15] MEDS: BUMETANIDE 1 MG TABLET PO SCH ×2 (07:49→23:30)
[2023-08-15] MEDS: DOCUSATE SODIUM 100 MG CAPSULE PO SCH ×2 (07:49→20:39)
[2023-08-15] MEDS ORDERED: SODIUM CHLORIDE 0.9% 1,000 ML ONE (08:23)
[2023-08-15] MEDS ORDERED: CeFAZolin 1 GM/DEXTROSE 50 ML IV ONE (15:00)
[2023-08-15 17:06] LABS: GLUCOMETER DEV NAME(LOC) 6N.2B; GLUCOSE,POINT OF CARE 108 MG/DL (70-110)
[2023-08-15 17:06] LABS: GLUCOMETER DEV NAME(LOC) 6S.2; GLUCOSE,POINT OF CARE 84 MG/DL (70-110)
[2023-08-15] MEDS: INSULIN LISPRO 100 UNITS/ML SQ PRN (17:37)
[2023-08-15 20:02] LABS: GLUCOMETER DEV NAME(LOC) 6N.2B; GLUCOSE,POINT OF CARE 186 MG/DL (70-110)
[2023-08-15] MEDS: ATORVASTATIN CALCIUM 40 MG TABLET PO SCH (20:34)
[2023-08-15] MEDS: CHLORHEXIDINE GLUCONATE 2% TOWELETTE [2'S/6'S] TP SCH (23:33)
[2023-08-16 04:27] VITALS: BP 148/68; PULSE 72; RESP 18; TEMP 99.4
[2023-08-16 08:06] LABS: GLUCOMETER DEV NAME(LOC) 6S.2; GLUCOSE,POINT OF CARE 120 MG/DL (70-110)
[2023-08-16 08:08] VITALS: BP 141/72; PULSE 71; RESP 18; TEMP 98.2
[2023-08-16] MEDS: SEVELAMER CARBONATE 800 MG TABLET PO SCH ×3 (08:18→17:45)
[2023-08-16] MEDS: METOPROLOL TARTRATE 50 MG TABLET PO SCH ×2 (08:18→20:47)
[2023-08-16] MEDS: AmLODIPine BESYLATE 5 MG TABLET PO SCH ×2 (08:18→20:48)
[2023-08-16] MEDS: DOCUSATE SODIUM 100 MG CAPSULE PO SCH ×2 (08:19→20:52)
[2023-08-16] MEDS: BUMETANIDE 1 MG TABLET PO SCH ×2 (08:30→20:49)
[2023-08-16] MEDS: HydrALAZINE HCL 50 MG TABLET PO SCH ×2 (08:31→16:10)
[2023-08-16] MEDS: EPOETIN ALFA 10,000 UNITS/ML VIAL SQ SCH (08:31)
[2023-08-16 10:31] LABS: GLUCOMETER DEV NAME(LOC) 4E.2; GLUCOSE,POINT OF CARE 98 MG/DL (70-110)
[2023-08-16] MEDS: INSULIN LISPRO 100 UNITS/ML SQ PRN (11:53)
[2023-08-16] MEDS ORDERED: HEPARIN SODIUM,PORCINE 1,000 UNITS/ML VIAL IVP ONE (12:00)
[2023-08-16 12:21] LABS: GLUCOMETER DEV NAME(LOC) 4E.2; GLUCOSE,POINT OF CARE 142 MG/DL (70-110)
[2023-08-16] MEDS: CeFAZolin 2 GM/DEXTROSE 50 ML IV SCH (15:00)
[2023-08-16 16:07] VITALS: BP 143/64; PULSE 76; RESP 18; TEMP 98.6
[2023-08-16 18:41] LABS: GLUCOMETER DEV NAME(LOC) 6N.2B; GLUCOSE,POINT OF CARE 124 MG/DL (70-110)
[2023-08-16] MEDS: ATORVASTATIN CALCIUM 40 MG TABLET PO SCH (20:47)
[2023-08-16] MEDS: CHLORHEXIDINE GLUCONATE 2% TOWELETTE [2'S/6'S] TP SCH (21:02)
[2023-08-17] MEDS: HydrALAZINE HCL 50 MG TABLET PO SCH ×3 (00:50→16:33)
[2023-08-17 06:27] VITALS: BP 140/66; PULSE 74; RESP 18; TEMP 98.7
[2023-08-17 07:41] LABS: GLUCOMETER DEV NAME(LOC) 6N.2B; GLUCOSE,POINT OF CARE 90 MG/DL (70-110)
[2023-08-17 08:00] VITALS: BP 142/66; PULSE 72; RESP 19; TEMP 98.6
[2023-08-17] MEDS: SEVELAMER CARBONATE 800 MG TABLET PO SCH ×3 (08:45→17:44)
[2023-08-17] MEDS: METOPROLOL TARTRATE 50 MG TABLET PO SCH ×2 (08:45→20:52)
[2023-08-17] MEDS: DOCUSATE SODIUM 100 MG CAPSULE PO SCH ×2 (08:45→20:51)
[2023-08-17] MEDS: BUMETANIDE 1 MG TABLET PO SCH ×2 (08:45→20:51)
[2023-08-17] MEDS: AmLODIPine BESYLATE 5 MG TABLET PO SCH ×2 (08:45→20:52)
[2023-08-17] MEDS: INSULIN LISPRO 100 UNITS/ML SQ PRN ×2 (12:13→17:45)
[2023-08-17 14:36] LABS: GLUCOMETER DEV NAME(LOC) 4E.2; GLUCOSE,POINT OF CARE 153 MG/DL (70-110)
[2023-08-17 16:26] VITALS: BP 168/86; PULSE 82; RESP 19; TEMP 98.6
[2023-08-17 19:46] VITALS: BP 140/78; PULSE 75; RESP 18; TEMP 98.2
[2023-08-17] MEDS: ATORVASTATIN CALCIUM 40 MG TABLET PO SCH (20:51)
[2023-08-17] MEDS: HYDROCODONE/ACETAMINOPHEN 5-325 MG TABLET PO PRN (20:51)
[2023-08-17] MEDS: CHLORHEXIDINE GLUCONATE 2% TOWELETTE [2'S/6'S] TP SCH (20:53)
[2023-08-18] VITALS (12 sets, daily range): BP systolic 101–184; BP diastolic 52–91; PULSE 66–78; RESP 18; TEMP 98.2–98.3
[2023-08-18] MEDS: HydrALAZINE HCL 50 MG TABLET PO SCH ×5 (01:19→23:36)
[2023-08-18 07:40] LABS: GLUCOMETER DEV NAME(LOC) 6S.2; GLUCOSE,POINT OF CARE 144 MG/DL (70-110)
[2023-08-18 07:41] LABS: GLUCOMETER DEV NAME(LOC) 4E.2; GLUCOSE,POINT OF CARE 93 MG/DL (70-110)
[2023-08-18 07:41] LABS: GLUCOMETER DEV NAME(LOC) 4E.2; GLUCOSE,POINT OF CARE 119 MG/DL (70-110)
[2023-08-18] MEDS: SEVELAMER CARBONATE 800 MG TABLET PO SCH ×3 (08:00→17:42)
[2023-08-18] MEDS ORDERED: SODIUM CHLORIDE 0.9% 1,000 ML ONE ×2 (08:11)
[2023-08-18] MEDS: METOPROLOL TARTRATE 50 MG TABLET PO SCH ×2 (09:14→20:24)
[2023-08-18] MEDS: AmLODIPine BESYLATE 5 MG TABLET PO SCH ×2 (09:14→20:24)
[2023-08-18] MEDS: DOCUSATE SODIUM 100 MG CAPSULE PO SCH ×2 (09:14→20:24)
[2023-08-18] MEDS: BUMETANIDE 1 MG TABLET PO SCH ×2 (09:14→20:26)
[2023-08-18] MEDS: INSULIN LISPRO 100 UNITS/ML SQ PRN ×2 (12:19→17:44)
[2023-08-18 20:01] LABS: GLUCOMETER DEV NAME(LOC) 6N.2B; GLUCOSE,POINT OF CARE 155 MG/DL (70-110)
[2023-08-18 20:01] LABS: GLUCOMETER DEV NAME(LOC) 6N.2B; GLUCOSE,POINT OF CARE 142 MG/DL (70-110)
[2023-08-18] MEDS: ATORVASTATIN CALCIUM 40 MG TABLET PO SCH (20:24)
[2023-08-18] MEDS: CHLORHEXIDINE GLUCONATE 2% TOWELETTE [2'S/6'S] TP SCH (20:24)
[2023-08-19 04:08] VITALS: BP 140/67; PULSE 70; RESP 18; TEMP 98.9
[2023-08-19 07:16] LABS: GLUCOMETER DEV NAME(LOC) 6S.2; GLUCOSE,POINT OF CARE 120 MG/DL (70-110)
[2023-08-19 07:16] LABS: GLUCOMETER DEV NAME(LOC) 6S.2; GLUCOSE,POINT OF CARE 106 MG/DL (70-110)
[2023-08-19] MEDS: BUMETANIDE 1 MG TABLET PO SCH (08:09)
[2023-08-19] MEDS: SEVELAMER CARBONATE 800 MG TABLET PO SCH ×3 (08:09→17:22)
[2023-08-19] MEDS: DOCUSATE SODIUM 100 MG CAPSULE PO SCH (08:09)
[2023-08-19 08:10] VITALS: BP 140/77; PULSE 73; RESP 19; TEMP 97.9
[2023-08-19] MEDS: HydrALAZINE HCL 50 MG TABLET PO SCH ×2 (08:10→16:49)
[2023-08-19] MEDS: AmLODIPine BESYLATE 5 MG TABLET PO SCH (08:10)
[2023-08-19] MEDS: METOPROLOL TARTRATE 50 MG TABLET PO SCH (08:10)
[2023-08-19] MEDS: CeFAZolin 2 GM/DEXTROSE 50 ML IV SCH (08:13)
[2023-08-19 12:09] LABS: COVID AG,FIA SOURCE NASAL SWAB
[2023-08-19] MEDS: INSULIN LISPRO 100 UNITS/ML SQ PRN (12:15)
[2023-08-19 12:29] LABS: SARS-COV2 (COVID) ANTIGEN,FIA Negative (Negative)
[2023-08-19] MEDS: EPOETIN ALFA 10,000 UNITS/ML VIAL SQ SCH (16:54)
[2023-08-19 17:56] LABS: GLUCOMETER DEV NAME(LOC) 6S.2; GLUCOSE,POINT OF CARE 113 MG/DL (70-110)
[2023-08-19] MEDS ORDERED: ATOR40TA28 PO (18:21)
[2023-08-19] MEDS ORDERED: AMLO-257 PO (18:22)
[2023-08-19] MEDS ORDERED: BUME1TAB34 PO (18:23)
[2023-08-19] MEDS ORDERED: CEFA1VIA IV (18:25)
[2023-08-19] MEDS ORDERED: EPOE20002 SQ (18:26)
[2023-08-19] MEDS ORDERED: HYDR50TA36 PO (18:26)
[2023-08-19] MEDS ORDERED: SEVE800T38 PO (18:27)
[2023-08-19] MEDS ORDERED: METO50 PO (18:27)
[2023-08-19] MEDS ORDERED: ACET-2247 PO (18:28)
[2023-08-19] MEDS ORDERED: INSU100V SQ (18:29)
[2023-08-19 22:21] LABS: GLUCOMETER DEV NAME(LOC) 4E.2; GLUCOSE,POINT OF CARE 172 MG/DL (70-110)
== END 2023-08-19 15:45 | DRG 280 ==
LOC: EMS 01:25 → ICU 06:28 → 5N 07-28 14:20 → 6N 08-13 13:45 → 6S 08-16 02:45
PROVIDERS: ADMIT Internal Medicine; ATTEND Internal Medicine
PROC: 5A09357 Assistance with Respiratory Ventilation, Less than 24 Consecutive Hours, Continuous Positive Airway Pressure (ICD-10-PCS; 2023-07-22)
PROC: 30233N1 Transfusion of Nonautologous Red Blood Cells into Peripheral Vein, Percutaneous Approach (ICD-10-PCS; 2023-07-23)
PROC: 5A1D70Z Performance of Urinary Filtration, Intermittent, Less than 6 Hours Per Day (ICD-10-PCS; 2023-07-23)
PROC: 06HY33Z Insertion of Infusion Device into Lower Vein, Percutaneous Approach (ICD-10-PCS; 2023-07-23)
PROC: B54BZZA Ultrasonography of Right Lower Extremity Veins, Guidance (ICD-10-PCS; 2023-07-23)
PROC: 5A1D70Z Performance of Urinary Filtration, Intermittent, Less than 6 Hours Per Day (ICD-10-PCS; principal; 2023-07-24)
PROC: 0W993ZZ Drainage of Right Pleural Cavity, Percutaneous Approach (ICD-10-PCS; 2023-07-25)
PROC: 5A1D70Z Performance of Urinary Filtration, Intermittent, Less than 6 Hours Per Day (ICD-10-PCS; 2023-07-26)
PROC: 0TB13ZX Excision of Left Kidney, Percutaneous Approach, Diagnostic (ICD-10-PCS; 2023-07-28)
PROC: 5A1D70Z Performance of Urinary Filtration, Intermittent, Less than 6 Hours Per Day (ICD-10-PCS; 2023-07-29)
PROC: 5A1D70Z Performance of Urinary Filtration, Intermittent, Less than 6 Hours Per Day (ICD-10-PCS; 2023-08-05)
PROC: 0JH63XZ Insertion of Tunneled Vascular Access Device into Chest Subcutaneous Tissue and Fascia, Percutaneous Approach (ICD-10-PCS; 2023-08-05)
PROC: 02H633Z Insertion of Infusion Device into Right Atrium, Percutaneous Approach (ICD-10-PCS; 2023-08-05)
PROC: B5181ZA Fluoroscopy of Superior Vena Cava using Low Osmolar Contrast, Guidance (ICD-10-PCS; 2023-08-05)
PROC: B548ZZA Ultrasonography of Superior Vena Cava, Guidance (ICD-10-PCS; 2023-08-05)
PROC: 5A1D70Z Performance of Urinary Filtration, Intermittent, Less than 6 Hours Per Day (ICD-10-PCS; 2023-08-06)
PROC: 5A09357 Assistance with Respiratory Ventilation, Less than 24 Consecutive Hours, Continuous Positive Airway Pressure (ICD-10-PCS; 2023-08-06)
PROC: 5A1D70Z Performance of Urinary Filtration, Intermittent, Less than 6 Hours Per Day (ICD-10-PCS; 2023-08-08)
PROC: 5A1D70Z Performance of Urinary Filtration, Intermittent, Less than 6 Hours Per Day (ICD-10-PCS; 2023-08-11)
PROC: 5A1D70Z Performance of Urinary Filtration, Intermittent, Less than 6 Hours Per Day (ICD-10-PCS; 2023-08-13)
PROC: 5A1D70Z Performance of Urinary Filtration, Intermittent, Less than 6 Hours Per Day (ICD-10-PCS; 2023-08-15)
PROC: 5A1D70Z Performance of Urinary Filtration, Intermittent, Less than 6 Hours Per Day (ICD-10-PCS; 2023-08-18)
DX: I16.1 Hypertensive emergency (principal); G93.41 Metabolic encephalopathy; I21.A1 Myocardial infarction type 2; J96.01 Acute respiratory failure with hypoxia; N17.0 Acute kidney failure with tubular necrosis; I50.33 Acute on chronic diastolic (congestive) heart failure; N18.6 End stage renal disease; J90 Pleural effusion, not elsewhere classified; E87.1 Hypo-osmolality and hyponatremia; N13.30 Unspecified hydronephrosis; R04.2 Hemoptysis; I31.39 Other pericardial effusion (noninflammatory); J39.0 Retropharyngeal and parapharyngeal abscess; I13.2 Hypertensive heart and chronic kidney disease with heart failure and with stage 5 chronic kidney disease, or end stage renal disease; E11.22 Type 2 diabetes mellitus with diabetic chronic kidney disease; E11.40 Type 2 diabetes mellitus with diabetic neuropathy, unspecified; E11.319 Type 2 diabetes mellitus with unspecified diabetic retinopathy without macular edema; R31.29 Other microscopic hematuria; B95.8 Unspecified staphylococcus as the cause of diseases classified elsewhere; T38.0X5A Adverse effect of glucocorticoids and synthetic analogues, initial encounter; E83.39 Other disorders of phosphorus metabolism; E87.6 Hypokalemia; I80.8 Phlebitis and thrombophlebitis of other sites; E11.51 Type 2 diabetes mellitus with diabetic peripheral angiopathy without gangrene; D63.1 Anemia in chronic kidney disease; E78.5 Hyperlipidemia, unspecified; F31.9 Bipolar disorder, unspecified; Z20.822 Contact with and (suspected) exposure to COVID-19; K59.00 Constipation, unspecified; Y83.8 Other surgical procedures as the cause of abnormal reaction of the patient, or of later complication, without mention of misadventure at the time of the procedure; Y92.89 Other specified places as the place of occurrence of the external cause; Z79.899 Other long term (current) drug therapy; Z91.158 Patient's noncompliance with renal dialysis for other reason; Z99.2 Dependence on renal dialysis
CPT/HCPCS: 32555; 36561; 36600; 50200; 70490; 70491; 71045; 71250; 71260; 72141; 72146; 72148; 72193; 73700; 74160; 76770; 76937; 76942; 78582; 80048; 80053; 80061; 80076; 80202; 80307; 81001; 81002; 82465; 82550; 82570; 82805; 82945; 82962; 83036; 83520; 83540; 83550; 83615; 83735; 83880; 83986; 84100; 84145; 84157; 84300; 84484; 85025; 85045; 85379; 85610; 85730; 86140; 86160; 86256; 86850; 86900; 86901; 86923; 87015; 87040; 87070; 87075; 87077; 87081; 87086; 87101; 87186; 87205; 87206; 87340; 87804; 88329; 89051; 90935; 93005; 93306; 93308; 93970; 93971; 94640; 94660; 97110; 97116; 97161; 97530; 99291; A9539; A9540; J0295; J0360; J0690; J0885; J1644; J1940; J2250; J2405; J2543; J2916; J2920; J2930; J3010; J3370; J3480; J3490; J7030; J7040; J7050; J7060; P9016; P9046; Q9967; 36415-L1; 36415-TC; J7613

== ENCOUNTER 2024-06-03 00:28 | Inpatient (IN) | payer MEDICARE, OTHER ==
[2024-06-03] VITALS (11 sets, daily range): BP systolic 79–193; BP diastolic 47–108; PULSE 65–81; RESP 18; TEMP 95.4–98.4; O2SAT 98–99
[~2024-06-03] VITALS: Ht 160 cm; Wt 51.0 kg
[~2024-06-03 00:28] MED LIST changes: +ACET-2247 PO; +AMLO-257 PO; -AMLO-258 PO; +ASPI-1450 PO; +ATOR40TA28 PO; +BUME1TAB50 PO; +BUME1TAB6 PO; -CLON0.3T PO; +DIVA-111 PO; -DIVA500T53 PO; +EPOE20002 SQ; +FOLI0.8T54 PO; +HYDR50TA36 PO; +INSU100V SQ; +LOSA-417 PO; +METO50 PO; -OLAN10TA26 PO; +SEVE800T38 PO
[2024-06-03 01:05] LABS: BASOPHILS % (AUTO) 0.7 % (0.0-2.0); EOSINOPHILS % (AUTO) 4.4 % (1.0-6.0); HEMATOCRIT 36.3 % (36-46); LYMPHOCYTES # (AUTO) 2.2 K/uL (1.0-4.8); LYMPHOCYTES % (AUTO) 20.3 % (22.0-44.0); MEAN CORPUSCULAR HGB CONC 32.9 G/dL (31.0-37.0); MEAN CORPUSCULAR VOLUME 97 fL (80-100); MONOCYTES # (AUTO) 1.1 K/uL (0.1-1.0); MONOCYTES % (AUTO) 10.4 % (2.0-9.0); NEUTROPHILS # (AUTO) 6.8 K/uL (1.8-7.7); NEUTROPHILS % (AUTO) 64.2 % (40.0-70.0); PLATELET COUNT (AUTO) 311 K/uL (150-450); RED BLOOD CELL COUNT(AUTO) 3.74 MIL/uL (4.00-5.20); RED CELL DISTRIBUTION WIDTH 15.6 % (11.5-14.5); WHITE BLOOD COUNT (AUTO) 10.7 K/uL (4.5-11.0)
[2024-06-03 01:16] LABS: CALCIUM, TOTAL 9.1 mg/dL (8.8-10.5); CREATININE 5.65 mg/dL (0.60-1.30); POTASSIUM 4.4 mmol/L (3.5-5.1)
[2024-06-03 01:22] LABS: BILIRUBIN,TOTAL 0.4 mg/dL (0.1-1.0); TOTAL PROTEIN, SERUM 8.7 g/dL (6.4-8.2)
[2024-06-03 01:23] LABS: TROPONIN I-HIGH SENSITIVITY 19 ng/L (<51)
[2024-06-03 01:31] LABS: COVID AG,FIA SOURCE NASAL SWAB
[2024-06-03 01:40] LABS: SARS-COV2 (COVID) ANTIGEN,FIA Negative (Negative)
[2024-06-03 01:41] LABS: INFLUENZA TYPE A NEGATIVE FOR TYPE A (NEGATIVE); INFLUENZA TYPE B NEGATIVE FOR TYPE B (NEGATIVE)
[2024-06-03] MEDS: NITROGLYCERIN 50 MG/D5% WATER 250 ML IV PRN (01:48)
[2024-06-03] MEDS ORDERED: ONDANSETRON HCL 4 MG/2 ML VIAL IVP PRN (04:45)
[2024-06-03] MEDS ORDERED: HydrALAZINE HCL 50 MG TABLET PO SCH (04:45)
[2024-06-03] MEDS: LABETALOL HCL 5 MG/ML 20 ML VIAL IVP ONE (05:01)
[2024-06-03] MEDS: AmLODIPine BESYLATE 5 MG TABLET PO SCH (05:04)
[2024-06-03] MEDS: LOSARTAN POTASSIUM 25 MG TABLET PO SCH (05:04)
[2024-06-03] MEDS ORDERED: RINGERS SOLUTION,LACTATED 1,000 ML IV ONE (06:30)
[2024-06-03] MEDS: BUMETANIDE 1 MG TABLET PO SCH (06:46)
[2024-06-03] MEDS: LOSARTAN POTASSIUM 50 MG TABLET PO ONE (06:46)
[2024-06-03] MEDS: HydrALAZINE HCL 50 MG TABLET PO SCH ×2 (06:46→15:26)
[2024-06-03] MEDS ORDERED: HydrALAZINE HCL 20 MG/ML VIAL IVP PRN (08:00)
[2024-06-03] MEDS: HEPARIN SODIUM,PORCINE 5,000 UNITS/ML VIAL SQ SCH (08:28)
[2024-06-03] MEDS: METOPROLOL TARTRATE 50 MG TABLET PO SCH (08:42)
[2024-06-03] MEDS: FOLIC ACID/VIT B COMPLEX AND C TABLET PO SCH (08:42)
[2024-06-03] MEDS: DIVALPROEX SODIUM 250 MG DR TABLET PO SCH (08:42)
[2024-06-03] MEDS: ISOSORBIDE MONONITRATE 30 MG ER TABLET PO SCH (08:43)
[2024-06-03] MEDS ORDERED: BUMETANIDE 1 MG TABLET PO SCH (09:00)
[2024-06-03] MEDS ORDERED: LOSARTAN POTASSIUM 25 MG TABLET PO SCH (09:00)
[2024-06-03] MEDS ORDERED: AmLODIPine BESYLATE 5 MG TABLET PO SCH (09:00)
[2024-06-03] MEDS ORDERED: HEPARIN SODIUM,PORCINE 1,000 UNITS/ML VIAL IVP ONE (12:00)
[2024-06-03] MEDS: SEVELAMER CARBONATE 800 MG TABLET PO SCH (12:16)
[2024-06-03] MEDS ORDERED: SODIUM CHLORIDE 0.9% 1,000 ML ONE (17:52)
[2024-06-04] VITALS (16 sets, daily range): BP systolic 100–176; BP diastolic 51–98; PULSE 68–83; RESP 16–20; TEMP 97.7–98.5; O2SAT 95–99
[2024-06-04] MEDS: ISOSORBIDE MONONITRATE 60 MG ER TABLET PO SCH (00:37)
[2024-06-04] MEDS: ASPIRIN 81 MG CHEWABLE TABLET PO SCH (00:38)
[2024-06-04] MEDS: ATORVASTATIN CALCIUM 40 MG TABLET PO SCH (00:39)
[2024-06-04] MEDS: AmLODIPine BESYLATE 5 MG TABLET PO SCH (00:41)
[2024-06-04] MEDS: HEPARIN SODIUM,PORCINE 1,000 UNITS/ML VIAL IVP PRN ×2 (01:01→01:03)
[2024-06-04 06:32] LABS: CALCIUM, TOTAL 8.5 mg/dL (8.8-10.5); CREATININE 3.82 mg/dL (0.60-1.30); MAGNESIUM 2.4 mg/dL (1.80-2.40); POTASSIUM 4.5 mmol/L (3.5-5.1)
[2024-06-04 06:37] LABS: BASOPHILS % (AUTO) 0.4 % (0.0-2.0); EOSINOPHILS % (AUTO) 3.9 % (1.0-6.0); HEMATOCRIT 33.6 % (36-46); HEMOGLOBIN 11.1 g/dL (12.0-16.0); LYMPHOCYTES # (AUTO) 0.9 K/uL (1.0-4.8); LYMPHOCYTES % (AUTO) 7.4 % (22.0-44.0); MEAN CORPUSCULAR HEMOGLOBIN 32.1 pg (26.0-34.0); MEAN CORPUSCULAR VOLUME 97 fL (80-100); MONOCYTES # (AUTO) 0.8 K/uL (0.1-1.0); MONOCYTES % (AUTO) 6.5 % (2.0-9.0); NEUTROPHILS # (AUTO) 9.5 K/uL (1.8-7.7); NEUTROPHILS % (AUTO) 81.8 % (40.0-70.0); PLATELET COUNT (AUTO) 261 K/uL (150-450); RED BLOOD CELL COUNT(AUTO) 3.46 MIL/uL (4.00-5.20); RED CELL DISTRIBUTION WIDTH 15.6 % (11.5-14.5); WHITE BLOOD COUNT (AUTO) 11.6 K/uL (4.5-11.0)
[2024-06-04] MEDS: LOSARTAN POTASSIUM 25 MG TABLET PO SCH (08:42)
[2024-06-04] MEDS ORDERED: HEPARIN SODIUM,PORCINE 1,000 UNITS/ML VIAL IVP ONE (12:00)
[2024-06-04] MEDS: HEPARIN SODIUM,PORCINE 1,000 UNITS/ML VIAL IVCATH ONE ×2 (14:36)
[2024-06-05 00:21] LABS: GLUCOMETER DEV NAME(LOC) 5N.2C; GLUCOSE,POINT OF CARE 108 MG/DL (70-110)
[2024-06-05 05:02] VITALS: BP 103/56; PULSE 67; RESP 18; TEMP 98; O2SAT 100
[2024-06-05 08:26] VITALS: BP 96/48; PULSE 67; RESP 19; TEMP 98.1; O2SAT 100
[2024-06-05 08:30] VITALS: BP 103/57; PULSE 68; RESP 18; O2SAT 97
[2024-06-05] MEDS ORDERED: SODIUM CHLORIDE 0.9% 500 ML IV ONE (13:43)
[2024-06-05] MEDS: PIPERACILLIN SODIUM/TAZOBACTAM 2.25 GM in DEXTROSE 5%-WATER 50 ML IV SCH (13:47)
[2024-06-05] MEDS ORDERED: VANCOMYCIN 1GM/WATER(PEG/NADA) 200 ML IV PRN (15:15)
[2024-06-05] MEDS: VANCOMYCIN 1.25 GM/WATER(PEG) 250 ML IV ONE (15:36)
[2024-06-05 16:08] VITALS: BP 129/61; PULSE 74; RESP 19; TEMP 98.3; O2SAT 100
[2024-06-05 19:23] VITALS: BP 178/77; PULSE 85; RESP 18; TEMP 98.4; O2SAT 100
[2024-06-05] MEDS: ISOSORBIDE MONONITRATE 30 MG ER TABLET PO SCH (19:57)
[2024-06-06] VITALS (15 sets, daily range): BP systolic 102–207; BP diastolic 56–179; PULSE 64–77; RESP 18–20; TEMP 97.9–98.7; O2SAT 99–100
[2024-06-06] MEDS ORDERED: SODIUM CHLORIDE 0.9% 2,000 ML ONE (09:21)
[2024-06-06] MEDS: HEPARIN SODIUM,PORCINE 1,000 UNITS/ML VIAL IVP PRN ×2 (14:06)
[2024-06-06] MEDS: AmLODIPine BESYLATE 5 MG TABLET PO SCH (15:39)
[2024-06-06] MEDS ORDERED: HEPARIN SODIUM,PORCINE 1,000 UNITS/ML VIAL IVP ONE (17:09)
[2024-06-06] MEDS: ISOSORBIDE MONONITRATE 30 MG ER TABLET PO SCH (20:37)
[2024-06-07 04:56] VITALS: BP 144/85; PULSE 62; RESP 16; TEMP 98.2; O2SAT 99
[2024-06-07 08:47] VITALS: BP 160/78; PULSE 65; RESP 18; TEMP 97.8; O2SAT 100
[2024-06-07 16:23] VITALS: BP 119/74; PULSE 62; RESP 20; TEMP 97.7; O2SAT 100
[2024-06-07 20:10] VITALS: BP 194/109; PULSE 72; RESP 18; TEMP 97.7; O2SAT 100
[2024-06-07 22:00] VITALS: BP 161/79; PULSE 72; RESP 20; TEMP 98.2; O2SAT 96
[2024-06-08] VITALS (13 sets, daily range): BP systolic 90–172; BP diastolic 54–91; PULSE 60–71; RESP 18; TEMP 97.7–98; O2SAT 98–100
[2024-06-08] MEDS ORDERED: SODIUM CHLORIDE 0.9% 2,000 ML ONE (10:32)
[2024-06-08] MEDS ORDERED: HEPARIN SODIUM,PORCINE 1,000 UNITS/ML VIAL IVP ONE (12:00)
[2024-06-08] MEDS: VANCOMYCIN 500 MG/WATER(PEG) 100 ML IV ONE (16:32)
[2024-06-08] MEDS: ISOSORBIDE MONONITRATE 60 MG ER TABLET PO SCH (20:49)
[2024-06-09 04:40] VITALS: BP 116/57; PULSE 66; RESP 16; TEMP 98.4; O2SAT 98
[2024-06-09 08:27] VITALS: BP 144/71; PULSE 67; RESP 17; TEMP 98.1; O2SAT 100
[2024-06-09] MEDS: CHLORHEXIDINE GLUCONATE 2% TOWELETTE [2'S/6'S] TP ONE (11:38)
[2024-06-09] MEDS: ETHYL ALCOHOL 62% ANTISEPTIC NASAL SANITIZER 0.6 ML AMPUL NASAL ONE (11:38)
[2024-06-09] MEDS ORDERED: SODIUM CHLORIDE 0.9% 0 ML ONE (11:40)
[2024-06-09] MEDS ORDERED: SODIUM CL IRRIG SOLN BAG 3,000 ML IRRIG ONE (11:40)
[2024-06-09] MEDS ORDERED: VANCOMYCIN HCL 1 GM VIAL ONE (11:40)
[2024-06-09] MEDS: RINGERS SOLUTION,LACTATED 1,000 ML IV ONE (11:40)
[2024-06-09] MEDS ORDERED: FentaNYL CITRATE PF 100 MCG/2 ML VIAL IVP PRN (11:45)
[2024-06-09] MEDS ORDERED: HYDROmorphone HCL 2 MG/ML SYRINGE IVP PRN (11:45)
[2024-06-09] MEDS: LIDOCAINE/PF 1% 30 ML VIAL ONE (13:07)
[2024-06-09] MEDS: BUPIVACAINE HCL/PF 0.25% 30 ML VIAL ONE (13:08)
[2024-06-09 15:57] VITALS: BP 154/88; PULSE 63; RESP 17; TEMP 97.9; O2SAT 99
[2024-06-09 20:00] VITALS: BP 146/80; PULSE 71; RESP 18; TEMP 98.2; O2SAT 100
[2024-06-10] VITALS (12 sets, daily range): BP systolic 102–208; BP diastolic 65–105; PULSE 62–86; RESP 18–20; TEMP 97.2–98.8; O2SAT 99
[2024-06-10 07:09] LABS: BASOPHILS % (AUTO) 0.8 % (0.0-2.0); EOSINOPHILS % (AUTO) 2.2 % (1.0-6.0); HEMATOCRIT 32.6 % (36-46); HEMOGLOBIN 10.8 g/dL (12.0-16.0); LYMPHOCYTES # (AUTO) 1.2 K/uL (1.0-4.8); LYMPHOCYTES % (AUTO) 15.1 % (22.0-44.0); MEAN CORPUSCULAR HEMOGLOBIN 32.1 pg (26.0-34.0); MEAN CORPUSCULAR HGB CONC 33.2 G/dL (31.0-37.0); MEAN CORPUSCULAR VOLUME 97 fL (80-100); MONOCYTES # (AUTO) 1.2 K/uL (0.1-1.0); MONOCYTES % (AUTO) 14.6 % (2.0-9.0); NEUTROPHILS # (AUTO) 5.5 K/uL (1.8-7.7); NEUTROPHILS % (AUTO) 67.3 % (40.0-70.0); PLATELET COUNT (AUTO) 142 K/uL (150-450); RED BLOOD CELL COUNT(AUTO) 3.38 MIL/uL (4.00-5.20); RED CELL DISTRIBUTION WIDTH 15.4 % (11.5-14.5); WHITE BLOOD COUNT (AUTO) 8.1 K/uL (4.5-11.0)
[2024-06-10 07:26] LABS: CALCIUM, TOTAL 7.8 mg/dL (8.8-10.5); CREATININE 5.52 mg/dL (0.60-1.30)
[2024-06-10 07:50] LABS: VANCOMYCIN,RANDOM 23.6 mcg/mL (25.0-50.0)
[2024-06-10] MEDS ORDERED: AMLO-257 PO (09:52)
[2024-06-10] MEDS ORDERED: AMOX1TAB15 PO (09:52)
[2024-06-10] MEDS ORDERED: SEVE800T38 PO (10:00)
[2024-06-10] MEDS ORDERED: ISOS60TA77 PO (10:00)
[2024-06-10] MEDS ORDERED: ASPI-1450 PO (10:00)
[2024-06-10] MEDS ORDERED: LOSA-417 PO (10:00)
[2024-06-10] MEDS ORDERED: METO50 PO (10:00)
[2024-06-10] MEDS ORDERED: FOLI0.8T54 PO (10:00)
[2024-06-10] MEDS ORDERED: BUME1TAB6 PO (10:00)
[2024-06-10] MEDS ORDERED: ATOR40TA28 PO (10:00)
[2024-06-10] MEDS: OXYGEN THERAPY IH SCH (20:00)
[2024-06-10] MEDS: ACETAMINOPHEN 325 MG TABLET PO PRN (20:42)
[2024-06-11 04:38] VITALS: BP 103/55; PULSE 60; RESP 18; TEMP 98.3; O2SAT 99
[2024-06-11 08:29] VITALS: BP 126/62; PULSE 87; RESP 19; TEMP 98.3; O2SAT 99
[2024-06-11 08:50] LABS: BASOPHILS % (AUTO) 0.9 % (0.0-2.0); EOSINOPHILS % (AUTO) 3.1 % (1.0-6.0); HEMATOCRIT 32.6 % (36-46); HEMOGLOBIN 10.8 g/dL (12.0-16.0); LYMPHOCYTES # (AUTO) 2.1 K/uL (1.0-4.8); LYMPHOCYTES % (AUTO) 35.6 % (22.0-44.0); MEAN CORPUSCULAR HEMOGLOBIN 32.2 pg (26.0-34.0); MEAN CORPUSCULAR HGB CONC 33.1 G/dL (31.0-37.0); MEAN CORPUSCULAR VOLUME 97 fL (80-100); MONOCYTES % (AUTO) 16.4 % (2.0-9.0); NEUTROPHILS # (AUTO) 2.6 K/uL (1.8-7.7); PLATELET COUNT (AUTO) 127 K/uL (150-450); RED BLOOD CELL COUNT(AUTO) 3.35 MIL/uL (4.00-5.20); RED CELL DISTRIBUTION WIDTH 15.7 % (11.5-14.5); WHITE BLOOD COUNT (AUTO) 5.9 K/uL (4.5-11.0)
[2024-06-11 09:28] LABS: CREATININE 4.63 mg/dL (0.60-1.30)
[2024-06-11 09:39] LABS: POTASSIUM 4.6 mmol/L (3.5-5.1)
[2024-06-11 10:08] LABS: PROTHROMBIN TIME 11.6 SEC (9.4-11.6)
[2024-06-11 16:44] VITALS: BP 132/67; PULSE 61; RESP 18; TEMP 97.7; O2SAT 98
== END 2024-06-11 18:40 | disposition home health service (06) | DRG 616 ==
LOC: EMS 00:30 → EDH 04:56 → 5S 10:10 → 6S 06-04 23:15 → 4E 06-06 06:56
PROVIDERS: ADMIT Internal Medicine; ATTEND Internal Medicine
PROC: 5A1D70Z Performance of Urinary Filtration, Intermittent, Less than 6 Hours Per Day (ICD-10-PCS; 2024-06-04)
PROC: 5A1D70Z Performance of Urinary Filtration, Intermittent, Less than 6 Hours Per Day (ICD-10-PCS; principal; 2024-06-05)
PROC: 5A1D70Z Performance of Urinary Filtration, Intermittent, Less than 6 Hours Per Day (ICD-10-PCS; 2024-06-06)
PROC: 5A1D70Z Performance of Urinary Filtration, Intermittent, Less than 6 Hours Per Day (ICD-10-PCS; 2024-06-08)
PROC: 0Y6V0Z3 Detachment at Right 4th Toe, Low, Open Approach (ICD-10-PCS; 2024-06-09)
PROC: 0JBQ0ZZ Excision of Right Foot Subcutaneous Tissue and Fascia, Open Approach (ICD-10-PCS; 2024-06-09)
PROC: 5A1D70Z Performance of Urinary Filtration, Intermittent, Less than 6 Hours Per Day (ICD-10-PCS; 2024-06-10)
DX: E11.69 Type 2 diabetes mellitus with other specified complication (principal); I50.33 Acute on chronic diastolic (congestive) heart failure; I13.2 Hypertensive heart and chronic kidney disease with heart failure and with stage 5 chronic kidney disease, or end stage renal disease; I16.1 Hypertensive emergency; M86.171 Other acute osteomyelitis, right ankle and foot; Z20.822 Contact with and (suspected) exposure to COVID-19; N18.6 End stage renal disease; E11.621 Type 2 diabetes mellitus with foot ulcer; E11.22 Type 2 diabetes mellitus with diabetic chronic kidney disease; L97.519 Non-pressure chronic ulcer of other part of right foot with unspecified severity; D63.1 Anemia in chronic kidney disease; F31.9 Bipolar disorder, unspecified; Z79.899 Other long term (current) drug therapy; Z99.2 Dependence on renal dialysis; Z79.4 Long term (current) use of insulin
CPT/HCPCS: 71045; 73718; 80048; 80053; 80202; 82550; 82962; 83735; 83880; 84484; 85025; 85610; 87070; 87205; 87340; 87804; 90935; 93005; 93306; 93925; 99285; G0378; J0360; J1644; J2405; J2543; J3370; J3490; J7030; J7040; J7060; 36415-L1; 36415-TC; Z7610

== ENCOUNTER 2025-03-24 15:14 | Inpatient (IN) | payer MEDICARE, OTHER ==
[~2025-03-24] VITALS: Ht 152.4 cm; Wt 50.4 kg
[~2025-03-24 15:14] MED LIST changes: -ACET-2247 PO; -AMLO-257 PO; +AMLO-258 PO; +AMOX1TAB15 PO; -BUME1TAB50 PO; +HEPARIN SODIUM,PORCINE 1,000 UNITS/ML VIAL IVP ONE; -HYDR50TA36 PO; +ISOS60TA77 PO; -SEVE800T38 PO; +SEVE800T39 PO
[2025-03-24 16:08] LABS: PLATELET COUNT (AUTO) 274 K/uL (150-450); RED BLOOD CELL COUNT(AUTO) 3.60 MIL/uL (4.00-5.20); RED CELL DISTRIBUTION WIDTH 15.6 % (11.5-14.5); WHITE BLOOD COUNT (AUTO) 15.1 K/uL (4.5-11.0)
[2025-03-24 16:18] LABS: CALCIUM, TOTAL 9.9 mg/dL (8.8-10.5); CREATININE 7.70 mg/dL (0.60-1.30); GLOMERULAR FILTR. RATE CALC 5 mL/min (>60); GLUCOSE,RANDOM 144 mg/dL (70-110); UREA NITROGEN, BLOOD 41 mg/dL (7-18)
[2025-03-24 16:24] LABS: CREATINE KINASE, TOTAL ONLY 233 U/L (26-192)
[2025-03-24 16:30] LABS: SODIUM SERUM 124 mmol/L (136-145); TROPONIN I-HIGH SENSITIVITY 73 ng/L (<51)
[2025-03-24] MEDS ORDERED: ZOLPIDEM TARTRATE 5 MG TABLET PO PRN (16:30)
[2025-03-24] MEDS ORDERED: ACETAMINOPHEN 325 MG TABLET PO PRN (16:30)
[2025-03-24] MEDS ORDERED: BISACODYL 10 MG RECTAL RECTAL SUPPOSITORY PR PRN (16:30)
[2025-03-24] MEDS ORDERED: HYDR50TA37 PO (16:34)
[2025-03-24] MEDS: OxyCODONE HCL/ACETAMINOPHEN 5-325 MG TABLET PO PRN (16:43)
[2025-03-24] MEDS: SODIUM CHLORIDE 0.9% 600 ML IV ONE (16:43)
[2025-03-24] MEDS ORDERED: DEXTROSE 50%-WATER 25 GM/50 ML SYRINGE IVP PRN (16:45)
[2025-03-24] MEDS ORDERED: INSULIN LISPRO 100 UNITS/ML SQ PRN (16:45)
[2025-03-24 16:51] LABS: GLUCOMETER DEV NAME(LOC) ERT.7; GLUCOSE,POINT OF CARE 143 MG/DL (70-110)
[2025-03-24 16:58] LABS: LACTIC ACID 1.4 mmol/L (0.4-2.0)
[2025-03-24] MEDS: VANCOMYCIN 1GM/WATER(PEG/NADA) 200 ML IV ONE (17:19)
[2025-03-24] MEDS: POTASSIUM CHLORIDE 10 MEQ ER TABLET PO ONE (17:23)
[2025-03-24] MEDS ORDERED: VANCOMYCIN HCL 1 GM in DEXTROSE 5%-WATER 250 ML IV PRN (17:45)
[2025-03-24 18:43] VITALS: BP 147/65; PULSE 97; RESP 18; TEMP 98.9; O2SAT 98
[2025-03-24 20:00] VITALS: BP 122/61; PULSE 74; RESP 18; TEMP 98.6; O2SAT 99
[2025-03-24] MEDS: DOCUSATE SODIUM 100 MG CAPSULE PO SCH (20:47)
[2025-03-24] MEDS: HEPARIN SODIUM,PORCINE 5,000 UNITS/ML VIAL SQ SCH (20:47)
[2025-03-25] VITALS (14 sets, daily range): BP systolic 100–165; BP diastolic 59–99; PULSE 76–100; RESP 16–19; TEMP 97.2–98.2; O2SAT 97–99
[2025-03-25] MEDS: ASPIRIN 81 MG CHEWABLE TABLET PO SCH (09:00)
[2025-03-25] MEDS: FAMOTIDINE 20 MG TABLET PO SCH (09:00)
[2025-03-25] MEDS: ATORVASTATIN CALCIUM 20 MG TABLET PO SCH (09:00)
[2025-03-26] VITALS (12 sets, daily range): BP systolic 95–175; BP diastolic 57–100; PULSE 81–106; RESP 17–19; TEMP 97–98.2; O2SAT 99–100
[2025-03-26] MEDS ORDERED: SODIUM CHLORIDE 0.9% 1,000 ML ONE (08:58)
[2025-03-26 11:07] LABS: CALCIUM, TOTAL 9.6 mg/dL (8.8-10.5); CREATININE 2.77 mg/dL (0.60-1.30); GLOMERULAR FILTR. RATE CALC 17.0 mL/min (>60); GLUCOSE,RANDOM 138.0 mg/dL (70-110); SODIUM SERUM 131.0 mmol/L (136-145); UREA NITROGEN, BLOOD 16.0 mg/dL (7-18)
[2025-03-26 11:12] LABS: PHOSPHORUS 2.8 mg/dL (2.5-4.9)
[2025-03-26] MEDS: HEPARIN SODIUM,PORCINE 1,000 UNITS/ML VIAL IVCATH ONE ×2 (13:23)
[2025-03-26 17:21] LABS: GLUCOMETER DEV NAME(LOC) 5S.1D; GLUCOSE,POINT OF CARE 139 MG/DL (70-110)
[2025-03-27] VITALS (7 sets, daily range): BP systolic 130–173; BP diastolic 64–89; PULSE 76–102; RESP 15–18; TEMP 97.7–99; O2SAT 98–100
[2025-03-27] MEDS: VANCOMYCIN 750 MG/WATER(PEG) 150 ML IV ONE (16:01)
[2025-03-28 08:00] VITALS: BP 142/76; PULSE 87; RESP 18; TEMP 98.5; O2SAT 96
[2025-03-28 12:00] VITALS: BP 134/79; PULSE 80; RESP 18; TEMP 98.6; O2SAT 100
[2025-03-28 16:00] VITALS: BP 170/83; PULSE 82; RESP 18; TEMP 98.3; O2SAT 100
[2025-03-28] MEDS ORDERED: HEPARIN SODIUM,PORCINE 1,000 UNITS/ML VIAL IVP ONE (16:30)
[2025-03-29] VITALS (7 sets, daily range): BP systolic 161–187; BP diastolic 85–111; PULSE 81–104; RESP 16–18; TEMP 97.6–98.1; O2SAT 98–100
[2025-03-29] MEDS ORDERED: SODIUM CHLORIDE 0.9% 1,000 ML ONE (08:59)
[2025-03-29] MEDS ORDERED: RINGERS SOLUTION,LACTATED 1,000 ML IV ONE (09:39)
[2025-03-29] MEDS: ETHYL ALCOHOL 62% ANTISEPTIC NASAL SANITIZER 0.6 ML AMPUL NASAL ONE (11:13)
[2025-03-29] MEDS ORDERED: MEPERIDINE-PF 25 MG/ML VIAL IVP PRN (11:15)
[2025-03-29] MEDS: CHLORHEXIDINE GLUCONATE 2% TOWELETTE [2'S/6'S] TP ONE (11:15)
[2025-03-29] MEDS ORDERED: FentaNYL CITRATE PF 100 MCG/2 ML VIAL IVP PRN (11:15)
[2025-03-29] MEDS: RINGERS SOLUTION,LACTATED 1,000 ML IV ONE (11:16)
[2025-03-29] MEDS ORDERED: BUPIVACAINE HCL/PF 0.5% 30 ML VIAL ONE (11:35)
[2025-03-29] MEDS ORDERED: HEPARIN SODIUM,PORCINE 1,000 UNITS/ML VIAL ONE (12:00)
[2025-03-29] MEDS ORDERED: FentaNYL CITRATE PF 100 MCG/2 ML VIAL ONE (12:00)
[2025-03-29] MEDS ORDERED: MIDAZOLAM HCL 2 MG/2 ML VIAL ONE (12:00)
[2025-03-29] MEDS ORDERED: PROPOFOL 1% 20 ML VIAL IVP ONE (12:00)
[2025-03-29] MEDS ORDERED: VANCOMYCIN HCL 1 GM VIAL ONE (12:02)
[2025-03-29] MEDS: BUPIVACAINE HCL/PF 0.5% 30 ML VIAL ONE (12:21)
[2025-03-29] MEDS: LIDOCAINE/PF 2% 5 ML VIAL ONE (12:21)
[2025-03-29 12:23] LABS: CALCIUM, TOTAL 9.5 mg/dL (8.8-10.5); CREATININE 3.67 mg/dL (0.60-1.30); GLOMERULAR FILTR. RATE CALC 12.0 mL/min (>60); GLUCOSE,RANDOM 113.0 mg/dL (70-110); SODIUM SERUM 133.0 mmol/L (136-145); UREA NITROGEN, BLOOD 29.0 mg/dL (7-18)
[2025-03-29 12:27] LABS: PLATELET COUNT (AUTO) 264 K/uL (150-450); RED BLOOD CELL COUNT(AUTO) 3.83 MIL/uL (4.00-5.20); RED CELL DISTRIBUTION WIDTH 15.4 % (11.5-14.5); WHITE BLOOD COUNT (AUTO) 9.1 K/uL (4.5-11.0)
[2025-03-29 12:29] LABS: ASPARTATE AMINOTRANSFERASE 157.0 U/L (15-37); TOTAL PROTEIN, SERUM 8.0 g/dL (6.4-8.2)
[2025-03-29 12:31] LABS: PHOSPHORUS 3.6 mg/dL (2.5-4.9)
[2025-03-29] MEDS ORDERED: VANCOMYCIN 500 MG/WATER(PEG) 100 ML IV ONE (16:00)
[2025-03-29] MEDS: OXYGEN THERAPY IH SCH (20:00)
[2025-03-30 10:12] VITALS: BP 165/94; PULSE 89; RESP 18; TEMP 98.7; O2SAT 98
[2025-03-30 11:47] VITALS: BP 177/87; PULSE 92; RESP 16; TEMP 97.9; O2SAT 98
[2025-03-31] MEDS ORDERED: VANCOMYCIN 500 MG/WATER(PEG) 100 ML IV ONE (16:00)
== END 2025-03-30 17:00 | disposition left against medical advice (07) | DRG 255 ==
LOC: EMS 15:14 → EDH 16:26 → 5S 18:36
PROVIDERS: ADMIT Internal Medicine; ATTEND Internal Medicine
PROC: 5A1D70Z Performance of Urinary Filtration, Intermittent, Less than 6 Hours Per Day (ICD-10-PCS; 2025-03-25)
PROC: 5A1D70Z Performance of Urinary Filtration, Intermittent, Less than 6 Hours Per Day (ICD-10-PCS; 2025-03-26)
PROC: 5A1D70Z Performance of Urinary Filtration, Intermittent, Less than 6 Hours Per Day (ICD-10-PCS; 2025-03-29)
PROC: 0Y6Q0Z0 Detachment at Left 1st Toe, Complete, Open Approach (ICD-10-PCS; principal; 2025-03-29 11:45)
DX: E11.52 Type 2 diabetes mellitus with diabetic peripheral angiopathy with gangrene (principal); N18.6 End stage renal disease; E44.0 Moderate protein-calorie malnutrition; E87.1 Hypo-osmolality and hyponatremia; I16.1 Hypertensive emergency; I13.2 Hypertensive heart and chronic kidney disease with heart failure and with stage 5 chronic kidney disease, or end stage renal disease; I96 Gangrene, not elsewhere classified; M86.8X7 Other osteomyelitis, ankle and foot; L02.612 Cutaneous abscess of left foot; E11.69 Type 2 diabetes mellitus with other specified complication; L03.032 Cellulitis of left toe; D63.1 Anemia in chronic kidney disease; E11.22 Type 2 diabetes mellitus with diabetic chronic kidney disease; E11.40 Type 2 diabetes mellitus with diabetic neuropathy, unspecified; E87.6 Hypokalemia; I25.10 Atherosclerotic heart disease of native coronary artery without angina pectoris; F31.9 Bipolar disorder, unspecified; I50.9 Heart failure, unspecified; Z53.29 Procedure and treatment not carried out because of patient's decision for other reasons; Z68.21 Body mass index [BMI] 21.0-21.9, adult; Z79.4 Long term (current) use of insulin; Z79.899 Other long term (current) drug therapy; Z83.3 Family history of diabetes mellitus; Z91.199 Patient's noncompliance with other medical treatment and regimen due to unspecified reason; Z93.3 Colostomy status; Z99.2 Dependence on renal dialysis
CPT/HCPCS: 71045; 73721; 80048; 80053; 80202; 82550; 82962; 83605; 83735; 83880; 84100; 84145; 84484; 85025; 85610; 85730; 87040; 87340; 90935; 93005; 96361; 96365; 96375; 99291; J0360; J1644; J2250; J2704; J3010; J3373; J3490; J7030; J7120; 36415-L1; 36415-TC

== ENCOUNTER 2025-04-02 14:03 | Inpatient (IN) | payer MEDICARE, OTHER ==
[~2025-04-02] VITALS: Ht 157.5 cm; Wt 51.0 kg
[~2025-04-02 14:03] MED LIST changes: -AMOX1TAB15 PO; -ASPI-1450 PO; -HEPARIN SODIUM,PORCINE 1,000 UNITS/ML VIAL IVP ONE; +HYDR50TA37 PO; -ISOS60TA77 PO; -LOSA-417 PO
[2025-04-02 15:25] LABS: PLATELET COUNT (AUTO) 292 K/uL (150-450); RED BLOOD CELL COUNT(AUTO) 3.67 MIL/uL (4.00-5.20); RED CELL DISTRIBUTION WIDTH 15.5 % (11.5-14.5); WHITE BLOOD COUNT (AUTO) 4.9 K/uL (4.5-11.0)
[2025-04-02 15:30] LABS: GLUCOMETER DEV NAME(LOC) ERT.7; GLUCOSE,POINT OF CARE 151 MG/DL (70-110)
[2025-04-02 15:34] LABS: CALCIUM, TOTAL 10.1 mg/dL (8.8-10.5); CREATININE 6.27 mg/dL (0.60-1.30); GLOMERULAR FILTR. RATE CALC 7 mL/min (>60); GLUCOSE,RANDOM 175 mg/dL (70-110); SODIUM SERUM 130 mmol/L (136-145); UREA NITROGEN, BLOOD 30 mg/dL (7-18)
[2025-04-02] MEDS: METOCLOPRAMIDE HCL 5 MG/ML 2 ML VIAL IVP ONE (15:36)
[2025-04-02 15:42] LABS: TROPONIN I-HIGH SENSITIVITY 33 ng/L (<51)
[2025-04-02] MEDS ORDERED: BISACODYL 10 MG RECTAL RECTAL SUPPOSITORY PR PRN (20:15)
[2025-04-02] MEDS ORDERED: HYDROCODONE/ACETAMINOPHEN 5-325 MG TABLET PO PRN (20:15)
[2025-04-02] MEDS ORDERED: ALBUTEROL SULFATE 2.5 MG/0.5 ML NEB SOLUTION NEB PRN (20:15)
[2025-04-02] MEDS ORDERED: IPRATROPIUM BROMIDE 0.5 MG/2.5 ML NEB SOLUTION NEB PRN (20:15)
[2025-04-02] MEDS ORDERED: MAGNESIUM HYDROXIDE SUSPENSION 30 ML UDCUP PO PRN (20:15)
[2025-04-02 21:44] VITALS: BP 188/85; PULSE 88; RESP 18; TEMP 97.7; O2SAT 99
[2025-04-02] MEDS: ATORVASTATIN CALCIUM 40 MG TABLET PO SCH (21:47)
[2025-04-02] MEDS: METOPROLOL TARTRATE 50 MG TABLET PO SCH (21:47)
[2025-04-02] MEDS: DOXYCYCLINE HYCLATE 100 MG TABLET PO SCH (22:32)
[2025-04-02] MEDS: ZOLPIDEM TARTRATE 5 MG TABLET PO PRN (23:15)
[2025-04-02] MEDS: HEPARIN SODIUM,PORCINE 5,000 UNITS/ML VIAL SQ SCH (23:16)
[2025-04-03] VITALS (13 sets, daily range): BP systolic 141–185; BP diastolic 66–105; PULSE 61–85; RESP 18–20; TEMP 97.7–98.4; O2SAT 97–100
[2025-04-03] MEDS: ACETAMINOPHEN 325 MG TABLET PO PRN (07:02)
[2025-04-03] MEDS ORDERED: DOXYCYCLINE HYCLATE 100 MG TABLET PO SCH (09:00)
[2025-04-03] MEDS: FOLIC ACID/VIT B COMPLEX AND C TABLET PO SCH (09:00)
[2025-04-03] MEDS: PANTOPRAZOLE SODIUM 40 MG DR TABLET PO SCH (09:00)
[2025-04-03] MEDS: SEVELAMER CARBONATE 800 MG TABLET PO SCH (09:00)
[2025-04-03] MEDS: ASPIRIN 81 MG CHEWABLE TABLET PO SCH (09:00)
[2025-04-03 11:40] LABS: PLATELET COUNT (AUTO) 275 K/uL (150-450); RED BLOOD CELL COUNT(AUTO) 3.51 MIL/uL (4.00-5.20); RED CELL DISTRIBUTION WIDTH 15.5 % (11.5-14.5); WHITE BLOOD COUNT (AUTO) 6.8 K/uL (4.5-11.0)
[2025-04-03 11:55] LABS: GLUCOMETER DEV NAME(LOC) 5S.2D; GLUCOSE,POINT OF CARE 111 MG/DL (70-110)
[2025-04-03 11:55] LABS: GLUCOMETER DEV NAME(LOC) 5S.2D; GLUCOSE,POINT OF CARE 96 MG/DL (70-110)
[2025-04-03 12:06] LABS: ASPARTATE AMINOTRANSFERASE 90.0 U/L (15-37); CALCIUM, TOTAL 8.8 mg/dL (8.8-10.5); CREATININE 7.36 mg/dL (0.60-1.30); GLOMERULAR FILTR. RATE CALC 6.0 mL/min (>60); GLUCOSE,RANDOM 109.0 mg/dL (70-110); SODIUM SERUM 131.0 mmol/L (136-145); TOTAL PROTEIN, SERUM 7.3 g/dL (6.4-8.2); UREA NITROGEN, BLOOD 37.0 mg/dL (7-18)
[2025-04-03] MEDS ORDERED: SODIUM CHLORIDE 0.9% 1,000 ML ONE (16:05)
[2025-04-03 20:00] LABS: GLUCOMETER DEV NAME(LOC) 5S.2D; GLUCOSE,POINT OF CARE 110 MG/DL (70-110)
[2025-04-04] VITALS (7 sets, daily range): BP systolic 121–216; BP diastolic 62–97; PULSE 66–81; RESP 18; TEMP 97.3–98.2; O2SAT 97–100
[2025-04-04] MEDS: ONDANSETRON HCL 4 MG/2 ML VIAL IVP PRN (04:00)
[2025-04-04] MEDS: METOCLOPRAMIDE HCL 5 MG/ML 2 ML VIAL IVP PRN (04:57)
[2025-04-04] MEDS: MORPHINE SULFATE 2 MG/ML SYRINGE IVP PRN (05:23)
[2025-04-04 22:16] LABS: GLUCOMETER DEV NAME(LOC) 5S.2D; GLUCOSE,POINT OF CARE 130 MG/DL (70-110)
[2025-04-04 22:16] LABS: GLUCOMETER DEV NAME(LOC) 5S.2D; GLUCOSE,POINT OF CARE 142 MG/DL (70-110)
[2025-04-04 22:16] LABS: GLUCOMETER DEV NAME(LOC) 5S.2D; GLUCOSE,POINT OF CARE 93 MG/DL (70-110)
[2025-04-04 22:16] LABS: GLUCOMETER DEV NAME(LOC) 5S.2D; GLUCOSE,POINT OF CARE 90 MG/DL (70-110)
[2025-04-05] VITALS (14 sets, daily range): BP systolic 130–184; BP diastolic 57–96; PULSE 59–76; RESP 16–19; TEMP 97.5–98.8; O2SAT 98–100
[2025-04-05 06:31] LABS: PLATELET COUNT (AUTO) 243 K/uL (150-450); RED BLOOD CELL COUNT(AUTO) 3.28 MIL/uL (4.00-5.20); RED CELL DISTRIBUTION WIDTH 15.6 % (11.5-14.5); WHITE BLOOD COUNT (AUTO) 6.0 K/uL (4.5-11.0)
[2025-04-05 07:16] LABS: CALCIUM, TOTAL 8.8 mg/dL (8.8-10.5); CREATININE 5.86 mg/dL (0.60-1.30); GLOMERULAR FILTR. RATE CALC 7.0 mL/min (>60); GLUCOSE,RANDOM 81.0 mg/dL (70-110); SODIUM SERUM 130.0 mmol/L (136-145); UREA NITROGEN, BLOOD 35.0 mg/dL (7-18)
[2025-04-05] MEDS: EPOETIN ALFA 10,000 UNITS/ML 2 ML VIAL SQ SCH (09:00)
[2025-04-05 12:21] LABS: GLUCOMETER DEV NAME(LOC) 5S.2D; GLUCOSE,POINT OF CARE 100 MG/DL (70-110)
[2025-04-05 12:21] LABS: GLUCOMETER DEV NAME(LOC) 5S.2D; GLUCOSE,POINT OF CARE 108 MG/DL (70-110)
[2025-04-05 12:21] LABS: GLUCOMETER DEV NAME(LOC) 5S.2D; GLUCOSE,POINT OF CARE 86 MG/DL (70-110)
[2025-04-06] MEDS ORDERED: HEPARIN SODIUM,PORCINE 1,000 UNITS/ML VIAL IVP ONE (09:40)
[2025-04-06 16:07] VITALS: BP 159/78; PULSE 86; RESP 16; TEMP 98.4; O2SAT 98
[2025-04-06] MEDS ORDERED: DOXY-354 PO (16:48)
[2025-04-06] MEDS ORDERED: ASPI-1450 PO (16:48)
[2025-04-06] MEDS ORDERED: LEVO-72 PO (16:48)
[2025-04-06] MEDS ORDERED: EPOETIN ALFA 10,000 UNITS/ML 2 ML VIAL SQ SCH (17:05)
[2025-04-06 20:00] VITALS: BP 172/66; PULSE 82; RESP 18; TEMP 98.1; O2SAT 96
[2025-04-06 21:00] VITALS: BP 150/78
== END 2025-04-06 22:52 | disposition home or self-care (01) | DRG 304 ==
LOC: EMS 14:03 → EDH 18:51 → 5N 21:10
PROVIDERS: ADMIT Hospitalist; ATTEND Hospitalist
PROC: 5A1D70Z Performance of Urinary Filtration, Intermittent, Less than 6 Hours Per Day (ICD-10-PCS; principal; 2025-04-03)
PROC: 5A1D70Z Performance of Urinary Filtration, Intermittent, Less than 6 Hours Per Day (ICD-10-PCS; 2025-04-05)
DX: I16.1 Hypertensive emergency (principal); N18.6 End stage renal disease; E87.1 Hypo-osmolality and hyponatremia; N17.9 Acute kidney failure, unspecified; E11.52 Type 2 diabetes mellitus with diabetic peripheral angiopathy with gangrene; I96 Gangrene, not elsewhere classified; M86.8X8 Other osteomyelitis, other site; I13.2 Hypertensive heart and chronic kidney disease with heart failure and with stage 5 chronic kidney disease, or end stage renal disease; I50.9 Heart failure, unspecified; D63.1 Anemia in chronic kidney disease; R13.10 Dysphagia, unspecified; E78.5 Hyperlipidemia, unspecified; Z83.3 Family history of diabetes mellitus; Z91.199 Patient's noncompliance with other medical treatment and regimen due to unspecified reason; Z99.2 Dependence on renal dialysis; E11.22 Type 2 diabetes mellitus with diabetic chronic kidney disease; E11.69 Type 2 diabetes mellitus with other specified complication
CPT/HCPCS: 76705; 80048; 80053; 82962; 83690; 83880; 84484; 85025; 87340; 90935; 92610; 93005; 96374; 96375; 99285; J0360; J0885; J1644; J2270; J2405; J2765; J7030

== ENCOUNTER 2025-07-28 12:26 | Inpatient (IN) | payer MEDICARE, OTHER ==
[~2025-07-28] VITALS: Ht 152.4 cm; Wt 39.5 kg
[~2025-07-28 12:26] MED LIST changes: +ASPI-1450 PO; +DOXY-354 PO; +HEPARIN SODIUM,PORCINE 1,000 UNITS/ML 10 ML VIAL ONE; +LEVO-72 PO; +SEVE800T24 PO; -SEVE800T39 PO
[2025-07-28] MEDS ORDERED: CARV-165 PO (12:53)
[2025-07-28] MEDS ORDERED: CLON1PAT12 TD (12:53)
[2025-07-28] MEDS ORDERED: PERCT PO (12:53)
[2025-07-28] MEDS ORDERED: CHOL200059 PO (12:53)
[2025-07-28] MEDS ORDERED: RISP-31 PO (12:53)
[2025-07-28] MEDS ORDERED: AMLO-257 PO (12:53)
[2025-07-28] MEDS ORDERED: ASPI-1450 PO (12:53)
[2025-07-28] MEDS ORDERED: CINA30TA32 PO (12:53)
[2025-07-28] MEDS ORDERED: AMLO-258 PO (12:53)
[2025-07-28] MEDS ORDERED: CLOP75TA83 PO (12:53)
[2025-07-28] MEDS ORDERED: NIFE-46 PO (12:53)
[2025-07-28] MEDS ORDERED: VALP250C48 PO (12:53)
[2025-07-28 13:40] LABS: PLATELET COUNT (AUTO) 105 K/uL (150-450); RED BLOOD CELL COUNT(AUTO) 3.94 MIL/uL (4.00-5.20); RED CELL DISTRIBUTION WIDTH 15.0 % (11.5-14.5); WHITE BLOOD COUNT (AUTO) 4.6 K/uL (4.5-11.0)
[2025-07-28 13:45] LABS: CALCIUM, TOTAL 11.5 mg/dL (8.8-10.5); CREATININE 4.76 mg/dL (0.60-1.30); GLOMERULAR FILTR. RATE CALC 9 mL/min (>60); GLUCOSE,RANDOM 116 mg/dL (70-110); SODIUM SERUM 132 mmol/L (136-145); UREA NITROGEN, BLOOD 30 mg/dL (7-18)
[2025-07-28 13:59] LABS: TROPONIN I-HIGH SENSITIVITY 56 ng/L (<51)
[2025-07-28] MEDS: CEFEPIME HCL 2 GM in DEXTROSE 5%-WATER 50 ML IV ONE (15:20)
[2025-07-28 15:25] LABS: LACTIC ACID 1.3 mmol/L (0.4-2.0)
[2025-07-28] MEDS: VANCOMYCIN 1GM/WATER(PEG/NADA) 200 ML IV ONE (15:50)
[2025-07-28] MEDS ORDERED: ONDANSETRON HCL 4 MG/2 ML VIAL IVP PRN (16:00)
[2025-07-28] MEDS ORDERED: ACETAMINOPHEN 325 MG TABLET PO PRN (16:00)
[2025-07-28] MEDS ORDERED: BISACODYL 10 MG RECTAL RECTAL SUPPOSITORY PR PRN (16:00)
[2025-07-28] MEDS: HEPARIN SODIUM,PORCINE 5,000 UNITS/ML VIAL SQ SCH (16:15)
[2025-07-28 18:16] LABS: GLUCOMETER DEV NAME(LOC) ICU.S7; GLUCOSE,POINT OF CARE 130 MG/DL (70-110)
[2025-07-28] MEDS: FOLIC ACID/VIT B COMPLEX AND C TABLET PO SCH (19:45)
[2025-07-28 20:00] VITALS: BP 161/81; PULSE 69; RESP 24; TEMP 98; O2SAT 100
[2025-07-28] MEDS: DOCUSATE SODIUM 100 MG CAPSULE PO SCH (21:00)
[2025-07-28 22:21] LABS: GLUCOMETER DEV NAME(LOC) ICU.S7; GLUCOSE,POINT OF CARE 126 MG/DL (70-110)
[2025-07-28] MEDS: CHLORHEXIDINE GLUCONATE 2% TOWELETTE [2'S/6'S] TP SCH (22:54)
[2025-07-29] VITALS (16 sets, daily range): BP systolic 103–162; BP diastolic 56–74; PULSE 68–99; RESP 16–25; TEMP 96.6–98.3; O2SAT 98–100
[2025-07-29 06:01] LABS: GLUCOMETER DEV NAME(LOC) ICU.S7; GLUCOSE,POINT OF CARE 108 MG/DL (70-110)
[2025-07-29 06:24] LABS: CALCIUM, TOTAL 10.4 mg/dL (8.8-10.5); CREATININE 3.2 mg/dL (0.60-1.30); GLOMERULAR FILTR. RATE CALC 14.0 mL/min (>60); GLUCOSE,RANDOM 103.0 mg/dL (70-110); SODIUM SERUM 132.0 mmol/L (136-145); UREA NITROGEN, BLOOD 20.0 mg/dL (7-18)
[2025-07-29] MEDS: HEPARIN SODIUM,PORCINE 1,000 UNITS/ML VIAL IVCATH PRN ×2 (07:42)
[2025-07-29] MEDS: ATORVASTATIN CALCIUM 40 MG TABLET PO SCH (09:00)
[2025-07-29] MEDS: ASPIRIN 81 MG CHEWABLE TABLET PO SCH (09:00)
[2025-07-29] MEDS: FAMOTIDINE 20 MG TABLET PO SCH (09:00)
[2025-07-29 12:15] LABS: GLUCOMETER DEV NAME(LOC) ICUN.7; GLUCOSE,POINT OF CARE 111 MG/DL (70-110)
[2025-07-29] MEDS ORDERED: HEPARIN SODIUM,PORCINE 1,000 UNITS/ML VIAL ONE (12:36)
[2025-07-29 19:21] LABS: GLUCOMETER DEV NAME(LOC) ICUN.7; GLUCOSE,POINT OF CARE 117 MG/DL (70-110)
[2025-07-29 21:40] LABS: GLUCOMETER DEV NAME(LOC) ICU.S7; GLUCOSE,POINT OF CARE 118 MG/DL (70-110)
[2025-07-30] VITALS (7 sets, daily range): BP systolic 144–180; BP diastolic 63–88; PULSE 86–98; RESP 15–29; TEMP 97.7–98.2; O2SAT 97–100
[2025-07-30 06:50] LABS: GLUCOMETER DEV NAME(LOC) ICU.S7; GLUCOSE,POINT OF CARE 128 MG/DL (70-110)
[2025-07-30 06:58] LABS: PLATELET COUNT (AUTO) 139 K/uL (150-450); RED BLOOD CELL COUNT(AUTO) 3.29 MIL/uL (4.00-5.20); RED CELL DISTRIBUTION WIDTH 14.2 % (11.5-14.5); WHITE BLOOD COUNT (AUTO) 6.5 K/uL (4.5-11.0)
[2025-07-30 07:19] LABS: CREATININE 3.9 mg/dL (0.60-1.30); GLOMERULAR FILTR. RATE CALC 11.0 mL/min (>60); GLUCOSE,RANDOM 127.0 mg/dL (70-110); SODIUM SERUM 133.0 mmol/L (136-145); UREA NITROGEN, BLOOD 18.0 mg/dL (7-18)
[2025-07-30 07:24] LABS: CALCIUM, TOTAL 11.8 mg/dL (8.8-10.5)
[2025-07-30] MEDS: ETHYL ALCOHOL 62% ANTISEPTIC NASAL SANITIZER 0.6 ML AMPUL NASAL SCH (09:53)
[2025-07-30] MEDS: LABETALOL HCL 5 MG/ML 20 ML VIAL IVP PRN (10:34)
[2025-07-30 11:04] LABS: RBC MORPHOLOGY COMMENT ABNORMAL RBC MORPH
[2025-07-30 17:41] LABS: GLUCOMETER DEV NAME(LOC) ICU.S7; GLUCOSE,POINT OF CARE 92 MG/DL (70-110)
[2025-07-30 19:20] LABS: GLUCOMETER DEV NAME(LOC) ICUN.7; GLUCOSE,POINT OF CARE 90 MG/DL (70-110)
[2025-07-31] VITALS (17 sets, daily range): BP systolic 99–238; BP diastolic 48–115; PULSE 66–101; RESP 18–20; TEMP 97.7–100; O2SAT 98–100
[2025-07-31] MEDS: DEXTROSE 50%-WATER 25 GM/50 ML SYRINGE IVP PRN (08:13)
[2025-07-31] MEDS ORDERED: SODIUM CHLORIDE 0.9% 2,000 ML ONE (09:00)
[2025-07-31] MEDS: CALCITONIN,SALMON,SYNTHETIC 200 UNITS/ML 2 ML VIAL SQ SCH (10:21)
[2025-07-31] MEDS: HEPARIN SODIUM,PORCINE 1,000 UNITS/ML VIAL IVCATH ONE ×2 (13:56)
[2025-08-01 04:00] VITALS: BP 189/75; PULSE 87; RESP 20; TEMP 98.4; O2SAT 99
[2025-08-01] MEDS: INSULIN LISPRO 100 UNITS/ML SQ PRN (06:26)
[2025-08-01 08:00] VITALS: BP 178/76; PULSE 80; RESP 18; TEMP 98.1; O2SAT 98
[2025-08-01 08:01] LABS: CALCIUM, TOTAL 9.9 mg/dL (8.8-10.5); CREATININE 3.29 mg/dL (0.60-1.30); GLOMERULAR FILTR. RATE CALC 14.0 mL/min (>60); GLUCOSE,RANDOM 129.0 mg/dL (70-110); SODIUM SERUM 135.0 mmol/L (136-145); UREA NITROGEN, BLOOD 22.0 mg/dL (7-18)
[2025-08-01 08:02] LABS: PHOSPHORUS 4.1 mg/dL (2.5-4.9)
[2025-08-01 11:00] VITALS: BP 176/74; PULSE 82; RESP 18; TEMP 98; O2SAT 97
[2025-08-01 15:00] VITALS: BP 167/82; PULSE 78; RESP 17; TEMP 98.1; O2SAT 97
[2025-08-01 17:00] VITALS: BP 151/75
[2025-08-01 20:28] VITALS: BP 124/65; PULSE 75; RESP 17; TEMP 98.8; O2SAT 98
[2025-08-01 20:46] LABS: GLUCOMETER DEV NAME(LOC) 5S.2E; GLUCOSE,POINT OF CARE 82 MG/DL (70-110)
[2025-08-01 20:47] LABS: GLUCOMETER DEV NAME(LOC) 5S.2E; GLUCOSE,POINT OF CARE 97 MG/DL (70-110)
[2025-08-01 20:47] LABS: GLUCOMETER DEV NAME(LOC) 5S.2E; GLUCOSE,POINT OF CARE 154 MG/DL (70-110)
[2025-08-01 20:47] LABS: GLUCOMETER DEV NAME(LOC) 5S.2E; GLUCOSE,POINT OF CARE 105 MG/DL (70-110)
[2025-08-01 20:47] LABS: GLUCOMETER DEV NAME(LOC) 5S.2E; GLUCOSE,POINT OF CARE 71 MG/DL (70-110)
[2025-08-01 20:47] LABS: GLUCOMETER DEV NAME(LOC) 5S.2E; GLUCOSE,POINT OF CARE 110 MG/DL (70-110)
[2025-08-01 20:47] LABS: GLUCOMETER DEV NAME(LOC) 5S.2E; GLUCOSE,POINT OF CARE 69 MG/DL (70-110)
[2025-08-01 20:47] LABS: GLUCOMETER DEV NAME(LOC) 5S.2E; GLUCOSE,POINT OF CARE 102 MG/DL (70-110)
[2025-08-02] VITALS (15 sets, daily range): BP systolic 70–193; BP diastolic 33–92; PULSE 67–95; RESP 16–18; TEMP 97–98.6; O2SAT 96–98
[2025-08-02 06:11] LABS: GLUCOMETER DEV NAME(LOC) 5S.2E; GLUCOSE,POINT OF CARE 138 MG/DL (70-110)
[2025-08-02 07:15] LABS: CALCIUM, TOTAL 10.8 mg/dL (8.8-10.5); CREATININE 4.71 mg/dL (0.60-1.30); GLOMERULAR FILTR. RATE CALC 9.0 mL/min (>60); GLUCOSE,RANDOM 115.0 mg/dL (70-110); SODIUM SERUM 135.0 mmol/L (136-145); UREA NITROGEN, BLOOD 42.0 mg/dL (7-18)
[2025-08-02 07:17] LABS: PHOSPHORUS 5.7 mg/dL (2.5-4.9)
[2025-08-02 15:51] LABS: GLUCOMETER DEV NAME(LOC) 5N.1D; GLUCOSE,POINT OF CARE 123 MG/DL (70-110)
[2025-08-02 15:51] LABS: GLUCOMETER DEV NAME(LOC) 5N.1D; GLUCOSE,POINT OF CARE 146 MG/DL (70-110)
[2025-08-02 15:51] LABS: GLUCOMETER DEV NAME(LOC) 5N.1D; GLUCOSE,POINT OF CARE 77 MG/DL (70-110)
== END 2025-08-02 18:00 | disposition hospice, home (50) | DRG 64 ==
LOC: EMS 12:26 → EDBEDREQ 14:55 → EDH 15:46 → ICU 17:10 → 5S 07-30 19:10
PROVIDERS: ADMIT Internal Medicine; ATTEND Internal Medicine
PROC: 5A1D70Z Performance of Urinary Filtration, Intermittent, Less than 6 Hours Per Day (ICD-10-PCS; principal; 2025-07-29)
PROC: 5A1D70Z Performance of Urinary Filtration, Intermittent, Less than 6 Hours Per Day (ICD-10-PCS; 2025-07-31)
PROC: 5A1D70Z Performance of Urinary Filtration, Intermittent, Less than 6 Hours Per Day (ICD-10-PCS; 2025-08-02)
DX: I63.81 Other cerebral infarction due to occlusion or stenosis of small artery (principal); G93.41 Metabolic encephalopathy; N18.6 End stage renal disease; I13.2 Hypertensive heart and chronic kidney disease with heart failure and with stage 5 chronic kidney disease, or end stage renal disease; I16.1 Hypertensive emergency; E87.1 Hypo-osmolality and hyponatremia; M86.9 Osteomyelitis, unspecified; D63.1 Anemia in chronic kidney disease; E11.52 Type 2 diabetes mellitus with diabetic peripheral angiopathy with gangrene; Z99.2 Dependence on renal dialysis; I67.4 Hypertensive encephalopathy; I50.9 Heart failure, unspecified; E87.6 Hypokalemia; E11.22 Type 2 diabetes mellitus with diabetic chronic kidney disease; E83.52 Hypercalcemia; E11.69 Type 2 diabetes mellitus with other specified complication; I25.10 Atherosclerotic heart disease of native coronary artery without angina pectoris; Z79.4 Long term (current) use of insulin; Z83.3 Family history of diabetes mellitus
CPT/HCPCS: 70450; 71045; 73721; 80048; 82962; 83605; 83735; 83880; 83970; 84100; 84484; 85025; 85610; 85730; 87040; 87081; 87340; 90935; 92526; 92610; 93005; 96365; 96375; 99291; G0378; J0360; J0630; J0692; J1644; J3490; J7030; J7050; J7060; 36415-L1; 36415-TC